=== PATIENT | male | born 1965 | race African-American/Black ===

== ENCOUNTER 2016-07-23 19:42 | Emergency (ER) | payer OTHER ==
[~2016-07-23] VITALS: Ht 167.6 cm; Wt 100.0 kg
[~2016-07-23 19:42] MED LIST: 1-ME1LIQ PO
[2016-07-23 19:45] VITALS: BP 164/94; PULSE 104; RESP 20; TEMP 98.2; O2SAT 96
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
[2016-11-01] MEDS ORDERED: AMLO10TA2 PO (12:05)
== END 2016-07-23 20:52 | disposition home or self-care (01) ==
LOC: NEPB 19:42
DX: S16.1XXA Strain of muscle, fascia and tendon at neck level, initial encounter (principal); I10 Essential (primary) hypertension; E78.00 Pure hypercholesterolemia, unspecified; Z72.0 Tobacco use; V43.52XA Car driver injured in collision with other type car in traffic accident, initial encounter; Y99.8 Other external cause status
CPT/HCPCS: 73564; 99283

== ENCOUNTER 2016-08-06 13:45 | Emergency (ER) | payer OTHER ==
[~2016-08-06] VITALS: Ht 167.6 cm; Wt 100.0 kg
[2016-08-06 13:48] VITALS: BP 160/89; PULSE 80; RESP 16; TEMP 98; O2SAT 96
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
[2016-08-06] MEDS ORDERED: NAPR500T PO (16:33)
[2016-11-01] MEDS ORDERED: AMLO10TA2 PO (12:05)
== END 2016-08-06 17:02 | disposition home or self-care (01) ==
LOC: NEPB 13:45
DX: S60.222D Contusion of left hand, subsequent encounter (principal); V43.52XD Car driver injured in collision with other type car in traffic accident, subsequent encounter; Y99.9 Unspecified external cause status; Y93.9 Activity, unspecified
CPT/HCPCS: 73130; 99283

== ENCOUNTER 2016-10-15 15:47 | Emergency (ER) | payer OTHER ==
[~2016-10-15] VITALS: Ht 167.6 cm; Wt 100.0 kg
[~2016-10-15 15:47] MED LIST changes: -1-ME1LIQ PO; +NAPR500T PO
[2016-10-15 15:48] VITALS: BP 143/77; PULSE 88; RESP 16; TEMP 97.7; O2SAT 98
[2016-10-15] MEDS ORDERED: blood pressure pill (17:20)
[2016-10-15] MEDS ORDERED: AMLO10TA2 PO (17:35)
[2016-10-15] MEDS ORDERED: NAPR500T PO (18:09)
[2016-11-01] MEDS ORDERED: AMLO10TA2 PO (12:05)
== END 2016-10-15 16:53 | disposition left against medical advice (07) ==
LOC: NETRI 15:47
DX: M79.672 Pain in left foot (principal); Z53.29 Procedure and treatment not carried out because of patient's decision for other reasons
CPT/HCPCS: 99281

== ENCOUNTER 2016-10-15 16:48 | Emergency (ER) | payer OTHER ==
[~2016-10-15] VITALS: Ht 167.6 cm; Wt 103.0 kg
[2016-10-15 16:59] VITALS: BP 157/100; PULSE 80; RESP 16; TEMP 98.8; O2SAT 96
--- NOTE | 2016-10-15 17:10 | PD ---
HPI Chief Complaint: Pain: Acute or Chronic Time Seen by Provider: 17:08 Travel History International Travel<30 days: No Contact w/Intl Traveler<30days: No Traveled to known affect area: No History of Present Illness HPI Patient comes in complaining of right fourth toe pain that he began this morning. Patient denies any known trauma. Patient denies anything like this in the past. Patient denies any numbness or tingling. Denies doing anything for this. Pain is worse with walking. Denies any radiation of the pain. Describes pain as achy like in nature. PFSH Past Medical History Cardiovascular Problems: Yes (HTN) High Cholesterol: Yes Diminished Hearing: No Hypertension: Yes Past Surgical History Other Surgery: Yes (REMOVAL OF CYST TO LEFT SIDE OF NECK ) Social History Alcohol Use: Yes (OCC) Tobacco Use: Yes Substance Use: No Allergies-Medications (Allergen,Severity, Reaction): Coded Allergies: No Known Allergies (Verified , 10/15/16) Reported Meds & Prescriptions Reported Meds & Active Scripts Active Naproxen 500 Mg Tab 500 Mg PO Q12HR PRN Reported Amlodipine (Amlodipine Besylate) 10 Mg Tab 10 Mg PO DAILY Review of Systems Except as stated in HPI: all other systems reviewed are Neg Physical Exam Narrative GENERAL: Well-developed, overly nourished, in no acute distress, and non-ill appearing. SKIN: Focused skin assessment warm and dry. HEAD: Atraumatic. Normocephalic. EYES: Pupils equal and round. EOMI. No scleral icterus. No injection or drainage. ENT: No nasal bleeding or discharge. Mucous membranes pink and moist. NECK: Trachea midline. Supple. No nuclear rigidity. CARDIOVASCULAR: Dorsal pulses 2+, intact, and equal bilaterally. Capillary refill less than 2 seconds. RESPIRATORY: No accessory muscle use. No respiratory distress. MUSCULOSKELETAL: No obvious deformities. No clubbing. No cyanosis. No edema. Full range of motion. Patient reports tenderness to palpation of the fourth metatarsal phalangeal joint of the right lower extremity. Is afebrile, nontender, nonfluctuant, and without crepitus. NEUROLOGICAL: Awake and alert. No obvious cranial nerve deficits. Motor grossly within normal limits. Normal speech. PSYCHIATRIC: Appropriate mood and affect; insight and judgment normal. Data Data Last Documented VS Vital Signs Date Time Temp Pulse Resp B/P Pulse Ox O2 Delivery O2 Flow Rate FiO2 10/15/16 18:15 18 10/15/16 16:59 98.8 80 157/100 96 Orders Toe (Min 2vws) (10/15/16 ) Ice/Cold Pack (10/15/16 17:08) Ketorolac Inj (Toradol Inj) (10/15/16 17:15) [facility] Medical Decision Making Medical Screen Exam Complete: Yes Emergency Medical Condition: Yes Differential Diagnosis Fracture, gout, pseudogout, arthritis, dislocation, other Narrative Course There is no clinical evidence for fracture. There is no clinical evidence to suspect bony injury by exam. Radiographic examination revealed no fracture seen at this time. No obvious ligamental injury or internal derangement is noted at this time. Appears neurovascularly intact distally, without evidence of neurovascular injury nor compartment syndrome. Tendon exam also was intact. The patient was discharged on pain medication and given warnings for vascular compromise. The patient is to follow up with podiatry. The patient agrees with plan. Patient in no obvious distress upon re-evaluation and reports improvement of his symptoms. All pertinent Radiology result(s) discussed with patient. Patient was asked if they wanted to speak to my attending, which the patient did not wish to do at this time. Any questions/concerns in reference to patient diagnosis/condition discussed and clarified prior to patient's discharge. Reinforced sheer importance of close follow up with patient's primary physician or primary care clinic and/or podiatry. Instructed patient to return to ED immediately, if symptoms return/worsen. Pt showed understanding of above instructions. Further instructions and recommendations were detailed in discharge paperwork. Pt ambulated without difficulty out of ED at discharge. Diagnosis Primary Impression: Toe pain, right Referrals: Zully Bales DPM Patient Instructions: General Instructions Additional Instructions: Follow-up with your primary care physician and or podiatry in 2-3 days for reevaluation. Take all medication as prescribed. Apply ice affected areas 20 minutes per hour as needed for pain. Return to the emergency department if symptoms get worse. Med/Other Pt SpecificInfo: Prescription(s) given Scripts Naproxen 500 Mg [id number] Mg PO Q12HR PRN (PAIN SCALE 1 TO 10) #14 TAB Ref 0 Prov:Arelis Harrington MD 10/15/16 Disposition: 01 DISCHARGE HOME Condition: Stable Jules Shea Oct 15, 2016 17:10
[2016-10-15] MEDS ORDERED: KETOROLAC TROMETHAMINE 60 MG/2 ML (IM) VIAL IM ONE (17:15)
[2016-10-15] MEDS ORDERED: blood pressure pill (17:20)
[2016-10-15] MEDS ORDERED: AMLO10TA2 PO (17:35)
--- NOTE | 2016-10-15 17:56 | RADHPO ---
EXAM DATE/TIME: 10/15/2016 17:23 [facility] COMPARISON: No previous studies available for comparison. INDICATIONS : Sudden onset of right 4th toe pain, no known injury MEDICAL HISTORY : Hypertension. SURGICAL HISTORY : None. ENCOUNTER: Initial ACUITY: 1 day PAIN SCORE: 9/10 LOCATION: Right 4th toe FINDINGS: Examination of the fourth digit of the right foot demonstrates no evidence of fracture or dislocation . No radiopaque foreign bodies are seen. The soft tissues are intact. CONCLUSION: Negative exam. David Lucero MD on October 15, 2016 at 17:54 Board Certified Radiologist. This report was verified electronically.
[2016-10-15] MEDS ORDERED: NAPR500T PO (18:09)
[2016-10-15 18:15] VITALS: RESP 18
[2016-11-01] MEDS ORDERED: AMLO10TA2 PO (12:05)
== END 2016-10-15 18:22 | disposition home or self-care (01) ==
LOC: PHED 16:48
DX: M79.674 Pain in right toe(s) (principal); I10 Essential (primary) hypertension; E78.00 Pure hypercholesterolemia, unspecified; Z72.0 Tobacco use
CPT/HCPCS: 73660; 96372; 99283; J1885

== ENCOUNTER 2016-10-18 12:30 | Emergency (ER) | payer OTHER ==
[~2016-10-18] VITALS: Ht 167.6 cm; Wt 103.4 kg
[~2016-10-18 12:30] MED LIST changes: +AMLO10TA2 PO
[2016-10-18 12:36] VITALS: BP 155/99; PULSE 93; RESP 16; TEMP 98.9; O2SAT 96
--- NOTE | 2016-10-18 13:20 | PD ---
HPI Chief Complaint: Edema Time Seen by Provider: 12:52 Travel History International Travel<30 days: No Contact w/Intl Traveler<30days: No Traveled to known affect area: No History of Present Illness HPI 51-year-old male complains of right groin pain, right foot pain and swelling. Patient was seen in the emergency room 3 days ago for right fourth toe pain. X- ray was negative acute bony injury. Patient was given prescription for Naprosyn. Patient states that she has increased in pain and swelling of the right foot now and started having pain or anterior aspect of the right groin also. Patient denies any fever chills. Patient denies any recent injury. Patient denies any chest pain or shortness of breath. Patient denies abdominal pain. Patient denies any dysuria or frequency. Patient states that the pain is aching pain and sharp pain localized to the dorsal aspect of the foot and the anterior aspect the right groin. Patient denies any pain radiation. On a scale of 1-10 the pain is a 9. PFSH Past Medical History Cardiovascular Problems: Yes (HTN) High Cholesterol: Yes Diminished Hearing: No Hypertension: Yes Influenza Vaccination: No Past Surgical History Other Surgery: Yes (REMOVAL OF CYST TO LEFT SIDE OF NECK ) Social History Alcohol Use: Yes (socially) Tobacco Use: No (occ) Substance Use: No Allergies-Medications (Allergen,Severity, Reaction): Coded Allergies: No Known Allergies (Verified , 10/18/16) Reported Meds & Prescriptions Reported Meds & Active Scripts Active Naproxen 500 Mg Tab 500 Mg PO Q12HR PRN Reported Amlodipine (Amlodipine Besylate) 10 Mg Tab 10 Mg PO DAILY Review of Systems General / Constitutional: No: Fever Eyes: No: Visual changes HENT: No: Headaches Cardiovascular: No: Chest Pain or Discomfort Respiratory: No: Shortness of Breath Gastrointestinal: No: Abdominal Pain Genitourinary: No: Dysuria Musculoskeletal: Positive: Pain Skin: No Rash Neurologic: No: Weakness Psychiatric: No: Depression Endocrine: No: Polydipsia Hematologic/Lymphatic: No: Easy Bruising Physical Exam Narrative GENERAL: Well-nourished, well-developed patient. SKIN: Focused skin assessment warm/dry. HEAD: Normocephalic. EYES: No scleral icterus. No injection or drainage. NECK: Supple, trachea midline. No JVD or lymphadenopathy. CARDIOVASCULAR: Regular rate and rhythm without murmurs, gallops, or rubs. RESPIRATORY: Breath sounds equal bilaterally. No accessory muscle use. GASTROINTESTINAL: Abdomen soft, non-tender, nondistended. MUSCULOSKELETAL: No cyanosis, or edema. BACK: Nontender without obvious deformity. No CVA tenderness. Patient has tenderness on palpation anterior aspect of right inguinal proximal right thigh area fibrous tissue prominence noted to the area. Patient has edema with mild tenderness and increasing heat and dorsal aspect the right foot. Data Data Last Documented VS Vital Signs Date Time Temp Pulse Resp B/P Pulse Ox O2 Delivery O2 Flow Rate FiO2 10/18/16 13:31 99 18 149/89 98 Room Air 10/18/16 12:36 98.9 Orders Complete Blood Count With Diff (10/18/16 13:06) Basic Metabolic Panel (Bmp) (10/18/16 13:06) Prothrombin Time / Inr (Pt) (10/18/16 13:06) Act Partial Throm Time (Ptt) (10/18/16 13:06) Westergren Sedimentation Rate (10/18/16 13:06) Iv Access Insert/Monitor (10/18/16 13:06) Us Leg Venous Doppler (10/18/16 13:06) Foot, Complete (Mbl4uvm) (10/18/16 13:06) Vancomycin Inj (Vancomycin Inj) (10/18/16 15:15) Labs Laboratory Tests Test 10/18/16 13:10 White Blood Count 13.4 TH/MM3 Red Blood Count 4.59 MIL/MM3 Hemoglobin 13.3 GM/DL Hematocrit 40.6 % Mean Corpuscular Volume 88.5 FL Mean Corpuscular Hemoglobin 29.0 PG Mean Corpuscular Hemoglobin 32.7 % Concent Red Cell Distribution Width 13.3 % Platelet Count 238 TH/MM3 Mean Platelet Volume 8.2 FL Neutrophils (%) (Auto) 84.5 % Lymphocytes (%) (Auto) 7.3 % Monocytes (%) (Auto) 7.8 % Eosinophils (%) (Auto) 0.2 % Basophils (%) (Auto) 0.2 % Neutrophils # (Auto) 11.4 TH/MM3 Lymphocytes # (Auto) 1.0 TH/MM3 Monocytes # (Auto) 1.0 TH/MM3 Eosinophils # (Auto) 0.0 TH/MM3 Basophils # (Auto) 0.0 TH/MM3 CBC Comment DIFF FINAL Differential Comment Erythrocyte Sedimentation Rate 36 mm/hr Prothrombin Time 10.7 SEC Prothromb Time International 1.0 RATIO Ratio Activated Partial 30.8 SEC Thromboplast Time Sodium Level 141 MEQ/L Potassium Level 3.9 MEQ/L Chloride Level 105 MEQ/L Carbon Dioxide Level 28.6 MEQ/L Anion Gap 7 MEQ/L Blood Urea Nitrogen 11 MG/DL Creatinine 1.30 MG/DL Estimat Glomerular Filtration 71 ML/MIN Rate Random Glucose 125 MG/DL Calcium Level 9.0 MG/DL [facility] Medical Decision Making Medical Screen Exam Complete: Yes Emergency Medical Condition: Yes Interpretation(s) 1503 p.m. Last Impressions Lower Extremity Ultrasound 10/18/16 1306 Signed Impressions: Service Date/Time: Tuesday, October 18, 2016 14:13 - CONCLUSION: Normal examination. Remi Gil MD Foot X-Ray 10/18/16 1306 Signed Impressions: Service Date/Time: Tuesday, October 18, 2016 13:17 - CONCLUSION: 1. Soft tissue swelling otherwise unremarkable. Fran Peters MD 1504 p.m. CBC with WBC 8.0. 79 neutrophil. Potassium 3.4. Creatinine 1.5. UA is negative. Differential Diagnosis Differential diagnosis including superficial phlebitis, lymphadenitis, cellulitis, abscess, sprain, fracture, dislocation, gouty arthritis. Narrative Course 51-year-old male with pain swelling of the right foot and pain on the right groin. Vancomycin 1 g IV given. Diagnosis Primary Impression: Cellulitis of right foot Additional Impression: Lymphadenitis Patient Instructions: General Instructions Additional Instructions: Bactrim and clindamycin as directed. Return in 2 days for recheck. Return sooner if worsening of condition. Med/Other Pt SpecificInfo: Prescription(s) given Scripts Clindamycin 150 Mg Cap2 Tab PO Q6H #80 CAP Prov:Giles Ellis MD 10/18/16 Sulfamethoxazole-Trimethoprim (Bactrim DS)800-160 Mg Tab1 Tab PO BID #20 TAB Prov:Giles Ellis MD 10/18/16 Disposition: 01 DISCHARGE HOME Condition: Stable Giles Ellis MD Oct 18, 2016 13:20
[2016-10-18 13:31] VITALS: BP 149/89; PULSE 99; RESP 18; O2SAT 98
[2016-10-18 13:36] LABS: AUTOMATED NEUTROPHIL # 11.4 TH/MM3 (1.8-7.7); BASOPHIL % 0.2 % (0.0-2.0); EOSINOPHIL % 0.2 % (0.0-4.0); HEMATOCRIT 40.6 % (39.0-51.0); LYMPH % 7.3 % (9.0-44.0); MEAN CELL VOLUME 88.5 FL (80.0-100.0); MEAN CORPUSCULAR HGB CONC 32.7 % (32.0-36.0); MONO % 7.8 % (0.0-8.0); NEUT % 84.5 % (16.0-70.0); PLATELET COUNT 238 TH/MM3 (150-450); RED BLOOD COUNT 4.59 MIL/MM3 (4.50-5.90); RED CELL DISTRIBUTION WIDTH 13.3 % (11.6-17.2); WHITE BLOOD COUNT 13.4 TH/MM3 (4.0-11.0)
[2016-10-18 13:47] LABS: HEMO FLAGS DIFF FINAL
[2016-10-18 13:55] LABS: POTASSIUM 3.9 MEQ/L (3.5-5.1)
[2016-10-18 13:57] LABS: BICARBONATE 28.6 MEQ/L (21.0-32.0)
[2016-10-18 14:09] LABS: APTT (PATIENT) 30.8 SEC (24.3-30.1); PROTHROMBIN TIME - PATIENT 10.7 SEC (9.8-11.6)
--- NOTE | 2016-10-18 14:32 | RADHPO ---
EXAM DATE/TIME: 10/18/2016 13:17 [facility] COMPARISON: No previous studies available for comparison. INDICATIONS : Right foot swelling with no known injury. MEDICAL HISTORY : Hypertension. Hypercholesterolemia. Osteoarthritis. SURGICAL HISTORY : Throat surgery. Cyst removed from neck. Left knee surgery. ENCOUNTER: Initial ACUITY: 4 - 6 days PAIN SCORE: 9/10 LOCATION: Right foot FINDINGS: Soft tissue swelling is present over the dorsum of the foot. There is no evidence of acute fracture. Bony mineralization is normal. Joint spaces are maintained. CONCLUSION: 1. Soft tissue swelling otherwise unremarkable. Fran Peters MD on October 18, 2016 at 14:20 Board Certified Radiologist. This report was verified electronically.
--- NOTE | 2016-10-18 14:44 | RADHPO ---
EXAM DATE/TIME: 10/18/2016 14:13 [place] COMPARISON: No previous studies available for comparison. INDICATIONS : Right leg pain and swelling. MEDICAL HISTORY : Hypercholesterolemia. Hypertension. Osteoarthritis. SURGICAL HISTORY : Left knee surgery. Throat surgery. Cyst removal from left side of neck. ENCOUNTER: Initial ACUITY: 2 weeks PAIN SCORE: 4/10 LOCATION: Right leg. TECHNIQUE: Venous ultrasound of the leg was performed from the inguinal ligament to the proximal calf. Real-zuri e, color Doppler and spectral tracing, compression and augmentation techniques were used. FINDINGS: There is normal compressibility of the deep venous system from the inguinal region to the proximal ca lf. No echogenic clot is seen in the lumen of the common femoral, femoral, popliteal, and posterior tibial veins. There is a normal response of the venous system to proximal and distal augmentation an d respiration. CONCLUSION: Normal examination. Remi Gil MD on October 18, 2016 at 14:41 Board Certified Radiologist. This report was verified electronically.
[2016-10-18] MEDS ORDERED: VANCOMYCIN INJ 1,000 MG in SODIUM CHLOR 0.9% 250 ML INJ 250 ML IV ONE (15:15)
[2016-10-18] MEDS ORDERED: BACT800T5 PO (15:35)
[2016-10-18] MEDS ORDERED: CLIN1CAP5 PO (15:35)
[2016-10-18 15:47] VITALS: BP 139/89; PULSE 77; RESP 18; O2SAT 99
[2016-10-18 16:37] VITALS: BP 152/93; PULSE 75; RESP 18; O2SAT 97
[2016-11-01] MEDS ORDERED: AMLO10TA2 PO (12:05)
== END 2016-10-18 17:23 | disposition home or self-care (01) ==
LOC: PHED 12:30
DX: L03.115 Cellulitis of right lower limb (principal); I88.9 Nonspecific lymphadenitis, unspecified; R60.9 Edema, unspecified; I10 Essential (primary) hypertension; E78.00 Pure hypercholesterolemia, unspecified; M79.89 Other specified soft tissue disorders; Z79.899 Other long term (current) drug therapy
CPT/HCPCS: 73630; 80048; 85025; 85610; 85652; 85730; 93971; 96365; 99284; J3370; J7050

== ENCOUNTER 2016-10-20 10:44 | Inpatient (IN) | payer OTHER ==
[~2016-10-20] VITALS: Ht 180.3 cm; Wt 100.7 kg
[~2016-10-20 10:44] MED LIST changes: +BACT800T5 PO; +CLIN1CAP5 PO
[2016-10-20 10:47] VITALS: BP 147/93; PULSE 91; RESP 16; TEMP 98.2; O2SAT 96
--- NOTE | 2016-10-20 11:21 | PD ---
HPI Chief Complaint: Edema Time Seen by Provider: 11:33 Travel History International Travel<30 days: No Contact w/Intl Traveler<30days: No Traveled to known affect area: No History of Present Illness HPI 51-year-old male with history of hypertension presents the ED for recheck of right foot cellulitis. Patient endorses increased edema, pain and redness in the area. Endorses chills, has not measured a fever at home. At last visit 10/18 he had lymphadenopathy in the right groin which he states has resolved. He endorses compliance with Bactrim and clindamycin prescribed a previous visit. States that he has been elevating the foot daily. PFSH Past Medical History Hx Anticoagulant Therapy: No Cardiovascular Problems: Yes (HTN) High Cholesterol: Yes Diabetes: No Diminished Hearing: No Hypertension: Yes Past Surgical History Surgical History: No Previous Surgery Other Surgery: Yes (REMOVAL OF CYST TO LEFT SIDE OF NECK ) Social History Alcohol Use: Yes (socially) Tobacco Use: No (occ) Substance Use: No Allergies-Medications (Allergen,Severity, Reaction): Coded Allergies: No Known Allergies (Verified , 10/20/16) Reported Meds & Prescriptions Reported Meds & Active Scripts Active Clindamycin (Clindamycin HCl) 150 Mg Cap 2 Tab PO Q6H Bactrim DS (Sulfamethoxazole-Trimethoprim) 800-160 Mg Tab 1 Tab PO BID Naproxen 500 Mg Tab 500 Mg PO Q12HR PRN Reported Amlodipine (Amlodipine Besylate) 10 Mg Tab 10 Mg PO DAILY Review of Systems Except as stated in HPI: all other systems reviewed are Neg Physical Exam Narrative GENERAL: Well-nourished, well-developed nontoxic-appearing black male in no acute distress. SKIN: Focused skin assessment warm/dry. HEAD: Normocephalic. EYES: No scleral icterus. No injection or drainage. NECK: Supple, trachea midline. No JVD or lymphadenopathy. CARDIOVASCULAR: Regular rate and rhythm without murmurs, gallops, or rubs. RESPIRATORY: Breath sounds equal bilaterally. No accessory muscle use. GASTROINTESTINAL: Abdomen soft, non-tender, nondistended. MUSCULOSKELETAL: No cyanosis. FOCUSED RIGHT LOWER EXTREMITY EXAM: 2+ DP pulse. The distal third of the dorsal aspect of the right foot is mildly erythematous and warm. There is tender 2+ edema to the mid [place]. No lymphadenopathy noted in the right groin. BACK: Nontender without obvious deformity. No CVA tenderness. Data Data Last Documented VS Vital Signs Date Time Temp Pulse Resp B/P Pulse Ox O2 Delivery O2 Flow Rate FiO2 10/20/16 13:01 16 10/20/16 10:47 98.2 91 147/93 96 Orders Complete Blood Count With Diff (10/20/16 11:31) Westergren Sedimentation Rate (10/20/16 11:31) ^ Insert Iv (10/20/16 11:31) Ketorolac Inj (Toradol Inj) (10/20/16 11:45) Clindamycin Inj (Cleocin Inj) (10/20/16 13:15) Admit Order (Ed Use Only) (10/20/16 13:25) Labs Laboratory Tests Test 10/20/16 11:40 White Blood Count 8.0 TH/MM3 Red Blood Count 4.78 MIL/MM3 Hemoglobin 14.2 GM/DL Hematocrit 42.1 % Mean Corpuscular Volume 88.1 FL Mean Corpuscular Hemoglobin 29.7 PG Mean Corpuscular Hemoglobin 33.8 % Concent Red Cell Distribution Width 13.0 % Platelet Count 258 TH/MM3 Mean Platelet Volume 8.0 FL Neutrophils (%) (Auto) 81.6 % Lymphocytes (%) (Auto) 10.6 % Monocytes (%) (Auto) 7.0 % Eosinophils (%) (Auto) 0.6 % Basophils (%) (Auto) 0.2 % Neutrophils # (Auto) 6.5 TH/MM3 Lymphocytes # (Auto) 0.9 TH/MM3 Monocytes # (Auto) 0.6 TH/MM3 Eosinophils # (Auto) 0.0 TH/MM3 Basophils # (Auto) 0.0 TH/MM3 CBC Comment AUTO DIFF Differential Comment AUTO DIFF CONFIRMED Erythrocyte Sedimentation Rate 19 mm/hr Sodium Level 140 MEQ/L Potassium Level 4.1 MEQ/L Chloride Level 107 MEQ/L Carbon Dioxide Level 23.6 MEQ/L Anion Gap 9 MEQ/L Blood Urea Nitrogen 15 MG/DL Creatinine 1.40 MG/DL Estimat Glomerular Filtration 65 ML/MIN Rate Random Glucose 118 MG/DL Calcium Level 9.4 MG/DL Total Bilirubin 0.3 MG/DL Aspartate Amino Transf 20 U/L (AST/SGOT) Alanine Aminotransferase 32 U/L (ALT/SGPT) Alkaline Phosphatase 102 U/L Total Protein 8.0 GM/DL Albumin 3.4 GM/DL MDM Medical Decision Making Medical Screen Exam Complete: Yes Emergency Medical Condition: Yes Differential Diagnosis Wound recheck versus cellulitis versus sepsis versus other Narrative Course 51-year-old male with history of hypertension presents the ED for recheck of right foot cellulitis. Patient endorses increased edema, pain and redness in the area. States that he is unable to walk on the foot secondary to pain. Endorses chills, has not measured a fever at home. At last visit he had lymphadenopathy in the right groin which he states has resolved. He endorses compliance with Keflex and Clindamycin. States that he has been elevating the foot daily. Denies history of diabetes. Vitals reviewed. Patient is afebrile on presentation. Physical exam reveals a nontoxic-appearing black male in no acute distress. The distal third of the dorsal aspect of the right foot is mildly erythematous and warm. There is tender 2+ edema to the mid [place]. No lymphadenopathy noted in the right groin. He is administered 30 mg IV Toradol. Review of the record reveals the patient had a previous white count of 13.4, previous ESR of 36. HE was administered IV Vancomycin. He also had an x-ray and ultrasound of the extremity which were both negative. WBC 8.0, ESR 19 today. I discussed the case with Dr. Pope who examined the patient and recommends IV clindamycin and observational admission. I spoke with Dr. Andersen who agrees to accept the patient to the medical service. Please see medicine notes for disposition. Diagnosis Primary Impression: Cellulitis of right foot Additional Impression: Leg edema, right Disposition: 01 DISCHARGE HOME Condition: Stable Cyndi Faith Oct 20, 2016 11:21
[2016-10-20] MEDS ORDERED: KETOROLAC TROMETHAMINE 30 MG/ML (IVP) VIAL IV PUSH ONE (11:45)
[2016-10-20 11:54] LABS: AUTOMATED NEUTROPHIL # 6.5 TH/MM3 (1.8-7.7); BASOPHIL % 0.2 % (0.0-2.0); EOSINOPHIL % 0.6 % (0.0-4.0); HEMATOCRIT 42.1 % (39.0-51.0); LYMPH % 10.6 % (9.0-44.0); LYMPHOCYTE # 0.9 TH/MM3 (1.0-4.8); MEAN CELL VOLUME 88.1 FL (80.0-100.0); MEAN CORPUSCULAR HEMOGLOBIN 29.7 PG (27.0-34.0); MEAN CORPUSCULAR HGB CONC 33.8 % (32.0-36.0); NEUT % 81.6 % (16.0-70.0); PLATELET COUNT 258 TH/MM3 (150-450); RED BLOOD COUNT 4.78 MIL/MM3 (4.50-5.90)
[2016-10-20 11:59] LABS: HEMO FLAGS AUTO DIFF
[2016-10-20 12:33] LABS: SCAN/DIFF AUTO DIFF CONFIRMED
[2016-10-20] MEDS ORDERED: CLINDAMYCIN INJ 900 MG in SODIUM CHLORIDE 0.9% INJ 100 ML IV ONE (13:15)
[2016-10-20] MEDS ORDERED: ONDANSETRON HCL 4 MG/2 ML VIAL IVP PRN (13:30)
[2016-10-20] MEDS ORDERED: MAGNESIUM HYDROXIDE SUSP 30 ML CUP PO PRN (13:30)
[2016-10-20] MEDS ORDERED: SENNOSIDES 8.6 MG TAB PO PRN (13:30)
[2016-10-20] MEDS ORDERED: SODIUM CHLORIDE 0.9% FLUSH 10 ML FLUSH IV FLUSH PRN (13:30)
[2016-10-20] MEDS ORDERED: BISACODYL 10 MG SUPP RECTAL PRN (13:30)
[2016-10-20] MEDS ORDERED: NALOXONE HCL 0.4 MG/ML AMP IV PRN ×2 (13:30→18:30)
[2016-10-20 13:38] LABS: CHLORIDE 107 MEQ/L (98-107); POTASSIUM 4.1 MEQ/L (3.5-5.1); SODIUM (NA) 140 MEQ/L (136-145)
[2016-10-20 13:42] LABS: ANION GAP 9 MEQ/L (5-15); BICARBONATE 23.6 MEQ/L (21.0-32.0); BLOOD UREA NITROGEN 15 MG/DL (7-18)
[2016-10-20 13:45] LABS: ALT (GPT) 32 U/L (12-78); AST (GOT) 20 U/L (15-37); GLOMERULAR FILTRATION RATE 65 ML/MIN (>89)
[2016-10-20 13:47] LABS: TOTAL BILIRUBIN ADULT 0.3 MG/DL (0.2-1.0)
[2016-10-20 13:48] LABS: ALKALINE PHOSPHATASE 102 U/L (45-117)
[2016-10-20] MEDS: SODIUM CHLOR 0.9% 1000 ML INJ 1,000 ML IV SCH (13:55)
[2016-10-20] MEDS: PIPERACIL-TAZO 3.375 GM PREMIX 50 ML IV SCH ×2 (13:56→21:41)
[2016-10-20] MEDS ORDERED: Vancomycin Consult Pharmacy 1 EA OTHER SCH (14:00)
[2016-10-20 14:35] VITALS: BP 158/89; PULSE 82; RESP 16; TEMP 98; O2SAT 97
[2016-10-20] MEDS ORDERED: VANCOMYCIN INJ 1,000 MG in SODIUM CHLOR 0.9% 250 ML INJ 250 ML IV SCH (16:00)
[2016-10-20] MEDS: VANCOMYCIN INJ 1,800 MG in SODIUM CHLORID 0.9% 500 ML INJ 500 ML IV SCH (16:36)
--- NOTE | 2016-10-20 17:47 | HHI.HP ---
[facility] No Primary Care Physician Admission Diagnosis cellulitis and edema of the right leg Diagnoses: (1) Cellulitis of right foot Diagnosis: Principal (2) Failure of outpatient treatment Diagnosis: Principal (3) Hypertension Diagnosis: Principal Chief Complaint: swelling, redness R foot Travel History International Travel<30 Days: No Contact w/Intl Traveler <30 Da: No Traveled to Known Affected Are: No History of Present Illness 51-year-old male with history of hypertension presents with complaint of swelling and redness to his right foot. He states the swelling started on 10/14/16 and the redness started on 10/16/16. He states the foot is warm. Pain is throbbing. Nothing makes it better or worse. He states he had a slight headache at home but denies any fevers or chills. Patient presented to the ED on 10/15/16 with right fourth toe pain and was prescribed naproxen, states that toe is swollen. He came back to ED on 10/18/16 and was treated for cellulitis and prescribed Bactrim and Clindamycin which he has been taking as prescribed since. Denies any chest pain, shortness of breath, abdominal pain, nausea, vomiting or diarrhea. Denies history of gout. Denies stepping on anything. Review of Systems Constitutional: DENIES: Fever, Chills Eyes: DENIES: Blurred vision Ears, nose, mouth, throat: DENIES: Throat pain, Ear Pain Respiratory: DENIES: Cough, Shortness of breath Cardiovascular: DENIES: Chest pain Gastrointestinal: DENIES: Abdominal pain, Constipation, Diarrhea, Nausea, Vomiting Genitourinary: DENIES: Dysuria Neurologic: COMPLAINS OF: Headache, DENIES: Paresthesias Integumentary: + R foot redness Musculoskeletal: + R foot pain and swelling Past Family Social History Past Medical History HTN Past Surgical History Cyst removal left side of neck Reported Medications Active Clindamycin (Clindamycin HCl) 150 Mg Cap 2 Tab PO Q6H Bactrim DS (Sulfamethoxazole-Trimethoprim) 800-160 Mg Tab 1 Tab PO BID Naproxen 500 Mg Tab 500 Mg PO Q12HR PRN Reported Amlodipine (Amlodipine Besylate) 10 Mg Tab 10 Mg PO DAILY Allergies: Coded Allergies: No Known Allergies (Verified , 10/20/16) Family History Mother: Hypertension Father's history unknown. Social History Occasionally drinks alcohol. Smokes a Black and Mild, one per week. Denies any history of illicit drug use including IVDA. Physical Exam Vital Signs Vital Signs Date Time Temp Pulse Resp B/P Pulse Ox O2 Delivery O2 Flow Rate FiO2 10/20/16 14:35 98.0 82 16 158/89 97 Room Air 10/20/16 13:01 16 10/20/16 11:40 16 10/20/16 10:47 98.2 91 16 147/93 96 Physical Exam GENERAL: This is a well-nourished, well-developed patient, in no apparent distress. SKIN: Erythema over the dorsal right foot. No wounds to the dorsal or plantar aspect of the right foot. Dry skin to plantar R foot. HEAD: Atraumatic. Normocephalic. EYES: No scleral icterus. No injection or drainage. NECK: Trachea midline. CARDIOVASCULAR: Regular rate and rhythm without murmurs, gallops, or rubs. RESPIRATORY: Clear to auscultation, but diminished. No wheezes, rales, or rhonchi. GASTROINTESTINAL: Normoactive bowel sounds. Abdomen soft, non-tender, nondistended. MUSCULOSKELETAL: Right foot and 4th toe are edematous. Mildly tender over the dorsal right foot. Mildly tender over the right medial and lateral malleolus, but patient has good active ROM of ankle joint. 2+ DP pulses bilaterally. NEUROLOGICAL: Awake and alert. Motor grossly within normal limits. Five out of 5 muscle strength in bilateral quadriceps. Normal speech. PSYCHIATRIC: Normal mood and affect. Insight and judgement normal. Laboratory Laboratory Tests Test 10/20/16 11:40 White Blood Count 8.0 Red Blood Count 4.78 Hemoglobin 14.2 Hematocrit 42.1 Mean Corpuscular Volume 88.1 Mean Corpuscular Hemoglobin 29.7 Mean Corpuscular Hemoglobin 33.8 Concent Red Cell Distribution Width 13.0 Platelet Count 258 Mean Platelet Volume 8.0 Neutrophils (%) (Auto) 81.6 Lymphocytes (%) (Auto) 10.6 Monocytes (%) (Auto) 7.0 Eosinophils (%) (Auto) 0.6 Basophils (%) (Auto) 0.2 Neutrophils # (Auto) 6.5 Lymphocytes # (Auto) 0.9 Monocytes # (Auto) 0.6 Eosinophils # (Auto) 0.0 Basophils # (Auto) 0.0 CBC Comment AUTO DIFF Differential Comment AUTO DIFF CONFIRMED Erythrocyte Sedimentation Rate 19 Sodium Level 140 Potassium Level 4.1 Chloride Level 107 Carbon Dioxide Level 23.6 Anion Gap 9 Blood Urea Nitrogen 15 Creatinine 1.40 Estimat Glomerular Filtration 65 Rate Random Glucose 118 Calcium Level 9.4 Total Bilirubin 0.3 Aspartate Amino Transf 20 (AST/SGOT) Alanine Aminotransferase 32 (ALT/SGPT) Alkaline Phosphatase 102 Total Protein 8.0 Albumin 3.4 Result Diagram: 10/20/16 1140 10/20/16 1140 Imaging 10/18 Right foot x-rays personally interpreted with no evidence of bony injury. 10/18 Doppler ultrasound negative for DVT. Assessment and Plan Assessment and Plan 51-year-old Israeli male with: Right foot cellulitis: Symptoms started 10/14. Failed outpatient antibiotics. No evidence of gout or septic joint. WBC normal. Neutrophils elevated at 81.6%. ESR improved from 10/18, 36-->19. -Zosyn, Vanc -Elevation -Tylenol, [place] prn pain -ID consultation -Monitor CBC HTN: Elevated on arrival but now improved without intervention. -Continue home amlodipine CKD: Upon review of prior labs, appears to have stage 2 CKD. Cr is 1.40 today which is likely patient's baseline. -IVF for now -Monitor BMP DVT prevention: SCDs. Discussed Condition With The exam, history, and the medical decision-making described in the above note were completed with the assistance of the mid-level provider. I reviewed and agree with the findings presented. I attest that I had a [id number] encounter with the patient on the same day, and personally performed and documented my assessment and findings in the medical record. Physician Certification 2 Midnight Certification Type: Admission for Inpatient Services Order for Inpatient Services The services are ordered in accordance with Medicare regulations or non- Medicare payer requirements, as applicable. In the case of services not specified as inpatient-only, they are appropriately provided as inpatient services in accordance with the 2-midnight benchmark. Estimated LOS (days): 2 days is the estimated time the patient will need to remain in the hospital, assuming treatment plan goals are met and no additional complications. Post-Hospital Plan: Home Leeanna Rivera Oct 20, 2016 17:47 Timothy Andersen MD Oct 20, 2016 23:14
[2016-10-20 18:13] VITALS: BP 134/84; PULSE 74; RESP 14; TEMP 97.6; O2SAT 97
[2016-10-20] MEDS ORDERED: ACETAMINOPHEN/HYDROcodone 325 MG/5 MG TAB PO PRN (18:30)
[2016-10-20] MEDS ORDERED: ACETAMINOPHEN 325 MG TAB PO PRN (18:30)
[2016-10-20 20:00] VITALS: BP 153/86; PULSE 76; RESP 20; TEMP 97.3; O2SAT 100
[2016-10-20] MEDS: DOCUSATE SODIUM 100 MG CAP PO SCH (21:00)
[2016-10-20] MEDS: SODIUM CHLORIDE 0.9% FLUSH 10 ML FLUSH IV FLUSH SCH (21:00)
[2016-10-20] MEDS: ACETAMINOPHEN/HYDROcodone 325 MG/10 MG TAB PO PRN (21:40)
[2016-10-21] VITALS: BP 145/92; PULSE 72; RESP 18; TEMP 97.1; O2SAT 96
[2016-10-21] MEDS: PIPERACIL-TAZO 3.375 GM PREMIX 50 ML IV SCH ×3 (02:13→13:07)
[2016-10-21] MEDS: SODIUM CHLOR 0.9% 1000 ML INJ 1,000 ML IV SCH ×3 (02:15→21:02)
[2016-10-21] MEDS: ACETAMINOPHEN/HYDROcodone 325 MG/10 MG TAB PO PRN ×3 (03:59→21:02)
[2016-10-21 06:06] LABS: AUTOMATED NEUTROPHIL # 5.2 TH/MM3 (1.8-7.7); BASOPHIL % 0.2 % (0.0-2.0); EOSINOPHIL # 0.1 TH/MM3 (0-0.4); HEMATOCRIT 38.6 % (39.0-51.0); HEMO FLAGS DIFF FINAL; LYMPH % 19.3 % (9.0-44.0); LYMPHOCYTE # 1.5 TH/MM3 (1.0-4.8); MEAN CELL VOLUME 87.4 FL (80.0-100.0); MEAN CORPUSCULAR HGB CONC 33.2 % (32.0-36.0); MONO % 12.1 % (0.0-8.0); NEUT % 67.4 % (16.0-70.0); PLATELET COUNT 245 TH/MM3 (150-450); RED BLOOD COUNT 4.41 MIL/MM3 (4.50-5.90); RED CELL DISTRIBUTION WIDTH 12.6 % (11.6-17.2); WHITE BLOOD COUNT 7.7 TH/MM3 (4.0-11.0)
[2016-10-21 06:12] LABS: CHLORIDE 108 MEQ/L (98-107); POTASSIUM 4.2 MEQ/L (3.5-5.1); SODIUM (NA) 141 MEQ/L (136-145)
[2016-10-21 06:17] LABS: ANION GAP 7 MEQ/L (5-15); BICARBONATE 26.3 MEQ/L (21.0-32.0); BLOOD UREA NITROGEN 16 MG/DL (7-18)
[2016-10-21 06:28] LABS: ALKALINE PHOSPHATASE 84 U/L (45-117); ALT (GPT) 32 U/L (12-78); AST (GOT) 16 U/L (15-37); GLOMERULAR FILTRATION RATE 60 ML/MIN (>89); TOTAL BILIRUBIN ADULT 0.4 MG/DL (0.2-1.0)
[2016-10-21 08:00] VITALS: BP 142/87; PULSE 66; RESP 20; TEMP 96.1; O2SAT 100
[2016-10-21] MEDS: SODIUM CHLORIDE 0.9% FLUSH 10 ML FLUSH IV FLUSH SCH ×2 (08:46→21:02)
[2016-10-21] MEDS: DOCUSATE SODIUM 100 MG CAP PO SCH ×2 (08:46→20:58)
[2016-10-21 12:00] VITALS: BP 146/91; PULSE 75; RESP 20; TEMP 97; O2SAT 98
--- NOTE | 2016-10-21 14:52 | PD.CONS ---
History of Present Illness Service Infectious disease Consult Requested By Dr Andersen Reason for Consult Cellulitis rt foot Primary Care Physician No Primary Care Physician Diagnoses: (1) Cellulitis of right foot (2) Failure of outpatient treatment (3) Hypertension History of Present Illness Patient with known HTN , denies diabetes says he scratched the sole of his rt foot with a back telephone cleaner and on 10/14 noted swelling that got progressively worse with pain and redness - came to the ER on 10/18 had a US - which was negative for DVT and he was given oral antibiotics but he continued to have swelling and pain and so came to the hospital and was admitted. Some sweats- no fever or chills. Review of Systems Constitutional: COMPLAINS OF: Diaphoretic episodes, DENIES: Fever Endocrine: DENIES: Polydipsia, Polyuria Eyes: DENIES: Diplopia, Eye inflammation Ears, nose, mouth, throat: DENIES: Hearing loss, Vertigo Respiratory: DENIES: Snoring, Wheezing, Shortness of breath Cardiovascular: COMPLAINS OF: Lower Extremity Edema, DENIES: Palpitations, Dyspnea on Exertion Gastrointestinal: DENIES: Abdominal pain, Black stools, Bloody stools, Constipation Genitourinary: DENIES: Urinary frequency Musculoskeletal: DENIES: Joint pain, Back pain Integumentary: COMPLAINS OF: Abnormal pigmentation Immunologic/allergic: DENIES: Eczema, Urticaria Neurologic: DENIES: Localized weakness, Speech Problems Psychiatric: DENIES: Anxiety, Confusion, Mood changes Past Family Social History Allergies: Coded Allergies: No Known Allergies (Verified , 10/20/16) Past Medical History Past Medical History HTN Past Surgical History Cyst removal left side of neck Reported Medications Active IV Vancomycin IV Zosyn Reported Amlodipine (Amlodipine Besylate) 10 Mg Tab 10 Mg PO DAILY Allergies: Coded Allergies: No Known Allergies (Verified , 10/20/16) Family History Mother: Hypertension Father's history unknown. Social History Occasionally drinks alcohol. Smokes a Black and Mild, one per week. Denies any history of illicit drug use including IVDA. Physical Exam Vital Signs Vital Signs Date Time Temp Pulse Resp B/P Pulse Ox O2 Delivery O2 Flow Rate FiO2 10/21/16 14:06 20 10/21/16 12:00 97.0 75 20 146/91 98 10/21/16 08:00 96.1 66 20 142/87 100 10/21/16 00:00 97.1 72 18 145/92 96 10/20/16 20:00 97.3 76 20 153/86 100 10/20/16 18:13 97.6 74 14 134/84 97 Physical Exam GENERAL: This is a obese patient, in no apparent distress. SKIN: Rt foot and leg warm , inflamed. HEAD: Atraumatic. Normocephalic. No temporal or scalp tenderness. EYES: Pupils equal round and reactive. Extraocular motions intact. No scleral icterus. No injection or drainage. ENT: Nose without bleeding, purulent drainage or septal hematoma. Throat without erythema, tonsillar hypertrophy or exudate. Uvula midline. Airway patent. NECK: Trachea midline. No JVD or lymphadenopathy. Supple, nontender, no meningeal signs. CARDIOVASCULAR: Regular rate and rhythm without murmurs, gallops, or rubs. RESPIRATORY: Clear to auscultation. Breath sounds equal bilaterally. No wheezes , rales, or rhonchi. GASTROINTESTINAL: Abdomen soft, non-tender, nondistended. No hepato-splenomegaly , or palpable masses. No guarding. MUSCULOSKELETAL: Extremities without clubbing, cyanosis No joint tenderness, effusion, or edema noted. No calf tenderness. Negative Homans sign bilaterally. Rt foot and leg inflamed, warm NEUROLOGICAL: Awake and alert. Cranial nerves II through XII intact. Motor and sensory grossly within normal limits. Five out of 5 muscle strength in all muscle groups. Normal speech. Laboratory Laboratory Tests Test 10/21/16 05:29 White Blood Count 7.7 Red Blood Count 4.41 Hemoglobin 12.8 Hematocrit 38.6 Mean Corpuscular Volume 87.4 Mean Corpuscular Hemoglobin 29.0 Mean Corpuscular Hemoglobin 33.2 Concent Red Cell Distribution Width 12.6 Platelet Count 245 Mean Platelet Volume 8.1 Neutrophils (%) (Auto) 67.4 Lymphocytes (%) (Auto) 19.3 Monocytes (%) (Auto) 12.1 Eosinophils (%) (Auto) 1.0 Basophils (%) (Auto) 0.2 Neutrophils # (Auto) 5.2 Lymphocytes # (Auto) 1.5 Monocytes # (Auto) 0.9 Eosinophils # (Auto) 0.1 Basophils # (Auto) 0.0 CBC Comment DIFF FINAL Differential Comment Sodium Level 141 Potassium Level 4.2 Chloride Level 108 Carbon Dioxide Level 26.3 Anion Gap 7 Blood Urea Nitrogen 16 Creatinine 1.50 Estimat Glomerular Filtration 60 Rate Random Glucose 101 Calcium Level 8.6 Total Bilirubin 0.4 Aspartate Amino Transf 16 (AST/SGOT) Alanine Aminotransferase 32 (ALT/SGPT) Alkaline Phosphatase 84 Total Protein 6.9 Albumin 2.8 Result Diagram: 10/21/1629 10/21/16528 Assessment and Plan Problem List: (1) Cellulitis of right foot Status: Acute Plan: Follow clinically Continue IV Vancomycin - pharmacy to dose Stop IV Zosyn Cefazolin 1 g IV q 8hrs (2) Hypertension Status: Acute (3) Failure of outpatient treatment Status: Acute Problem Qualifiers (1) Hypertension: Qualified Code: I10 - Essential hypertension Sloane Ramsey MD Oct 21, 2016 14:52
[2016-10-21 16:00] VITALS: BP 150/86; PULSE 69; RESP 20; TEMP 95.5; O2SAT 99
[2016-10-21] MEDS: VANCOMYCIN INJ 1,800 MG in SODIUM CHLORID 0.9% 500 ML INJ 500 ML IV SCH (16:10)
[2016-10-21 20:00] VITALS: BP 147/92; PULSE 71; RESP 20; TEMP 98.3; O2SAT 99
--- NOTE | 2016-10-21 22:43 | HHI.PR ---
Subjective Remarks Patient seen this afternoon around 1 PM. Patient states that right foot pain has not improved at all. He denies any chest pain or shortness of breath. Objective Vital Signs Date Time Temp Pulse Resp B/P Pulse Ox O2 Delivery O2 Flow Rate FiO2 10/21/16 20:00 98.3 71 20 147/92 99 10/21/16 16:00 95.5 69 20 150/86 99 10/21/16 14:06 20 10/21/16 12:00 97.0 75 20 146/91 98 10/21/16 08:00 96.1 66 20 142/87 100 10/21/16 00:00 97.1 72 18 145/92 96 I/O 10/20/16 10/20/16 10/20/16 10/21/16 10/21/16 10/21/16 07:00 15:00 23:00 07:00 15:00 23:00 Intake Total 156 ml 240 ml 2012 ml 1700 ml Output Total 400 ml 750 ml Balance 156 ml -160 ml 1262 ml 1700 ml Intake Oral 240 ml 240 ml 1700 ml IV Total 156 ml 1772 ml Output Urine Total 400 ml 750 ml # Voids 10 # Bowel Movements 0 0 1 Result Diagram: 10/21/1652810/21/16528 Objective Remarks GENERAL: patient lying in bed. Appears uncomfortable. SKIN: Warm and dry. HEAD: Normocephalic. EYES: No scleral icterus. No injection or drainage. NECK: Supple, trachea midline. No JVD. CARDIOVASCULAR: Regular rate and rhythm without murmurs, gallops, or rubs. RESPIRATORY: Breath sounds equal bilaterally. No accessory muscle use. GASTROINTESTINAL: Abdomen soft, non-tender, nondistended. MUSCULOSKELETAL: No cyanosis, or edema. right dorsum of foot still with swelling and erythema. No broken skin. No improvement from yesterday. BACK: Nontender without obvious deformity. No CVA tenderness. A/P Assessment and Plan Right foot cellulitis: Symptoms started 10/14. Failed outpatient antibiotics. No evidence of gout or septic joint. WBC normal. Neutrophils elevated at 81.6%. ESR improved from 10/18, 36-->19. -Zosyn, Vanc -Elevation -Tylenol, [place] prn pain -ID consultation -Monitor CBC = 10/21. No improvement in pain. Appreciate infectious disease assistance. Switched to cefazolin. Continue to monitor. HTN: Elevated on arrival but now improved without intervention. -Continue home amlodipine -Blood pressure stable. Continue to monitor. CKD: Upon review of prior labs, appears to have stage 2 CKD. Cr is 1.40 on admission -IVF for now -Monitor BMP -10/21. Creatinine was slightly increased. We'll continue to monitor. DVT prevention: SCDs. Discharge Planning patient can likely go home when he has improvement in pain and swelling. Timothy Andersen MD Oct 21, 2016 22:43
[2016-10-22] VITALS: BP 134/85; PULSE 71; RESP 20; TEMP 97.6; O2SAT 95
[2016-10-22] MEDS: ACETAMINOPHEN/HYDROcodone 325 MG/10 MG TAB PO PRN ×3 (04:01→19:41)
[2016-10-22] MEDS: SODIUM CHLOR 0.9% 1000 ML INJ 1,000 ML IV SCH ×2 (06:05→15:43)
[2016-10-22 08:00] VITALS: BP 138/92; PULSE 99; RESP 20; TEMP 95.9; O2SAT 99
[2016-10-22 08:08] LABS: AUTOMATED NEUTROPHIL # 4.3 TH/MM3 (1.8-7.7); BASOPHIL % 0.2 % (0.0-2.0); EOSINOPHIL % 0.7 % (0.0-4.0); HEMATOCRIT 37.2 % (39.0-51.0); HEMO FLAGS DIFF FINAL; LYMPH % 22.6 % (9.0-44.0); LYMPHOCYTE # 1.5 TH/MM3 (1.0-4.8); MEAN CELL VOLUME 87.8 FL (80.0-100.0); MEAN CORPUSCULAR HEMOGLOBIN 29.8 PG (27.0-34.0); MEAN CORPUSCULAR HGB CONC 33.9 % (32.0-36.0); NEUT % 66.5 % (16.0-70.0); PLATELET COUNT 255 TH/MM3 (150-450); RED BLOOD COUNT 4.24 MIL/MM3 (4.50-5.90); RED CELL DISTRIBUTION WIDTH 12.8 % (11.6-17.2); WHITE BLOOD COUNT 6.4 TH/MM3 (4.0-11.0)
[2016-10-22 08:15] LABS: POTASSIUM 4.2 MEQ/L (3.5-5.1)
[2016-10-22 08:22] LABS: BICARBONATE 26.9 MEQ/L (21.0-32.0)
[2016-10-22] MEDS: SODIUM CHLORIDE 0.9% FLUSH 10 ML FLUSH IV FLUSH SCH ×2 (08:28→19:40)
[2016-10-22] MEDS: DOCUSATE SODIUM 100 MG CAP PO SCH ×2 (08:28→19:41)
[2016-10-22 12:00] VITALS: BP 123/77; PULSE 66; RESP 20; TEMP 96.7; O2SAT 97
[2016-10-22] MEDS: VANCOMYCIN INJ 1,800 MG in SODIUM CHLORID 0.9% 500 ML INJ 500 ML IV SCH (15:46)
--- NOTE | 2016-10-22 15:52 | HHI.PR ---
Subjective Remarks She is seen this morning around 11 AM. Slight improvement in pain and swelling in the right foot. Denies any chest pain or shortness of breath. Denies any nausea or vomiting. Patient later requesting to be placed on regular diet, discontinued diabetic diet. is brought in cookies. A1c 6.6 in 2016, essentially a diagnosis of diabetes. Continue diabetic diet. Objective Vital Signs Date Time Temp Pulse Resp B/P Pulse Ox O2 Delivery O2 Flow Rate FiO2 10/22/16 08:00 95.9 99 20 138/92 99 10/22/16 04:00 10/22/16 00:00 97.6 71 20 134/85 95 10/21/16 20:00 98.3 71 20 147/92 99 10/21/16 16:00 95.5 69 20 150/86 99 I/O 10/21/16 10/21/16 10/21/16 10/22/16 10/22/16 10/22/16 07:00 15:00 23:00 07:00 15:00 23:00 Intake Total 2012 ml 1700 ml 1400 ml Output Total 750 ml 1150 ml 400 ml Balance 1262 ml 1700 ml -1150 ml 1000 ml Intake Oral 240 ml 1700 ml IV Total 1772 ml 1400 ml Output Urine Total 750 ml 1150 ml 400 ml # Voids 10 # Bowel Movements 0 1 Result Diagram: 10/22/1662410/22/16624 Objective Remarks GENERAL: patient lying in bed. Appears comfortable from yesterday.. Alert and oriented 3. SKIN: Warm and dry. HEAD: Normocephalic. EYES: No scleral icterus. No injection or drainage. NECK: Supple, trachea midline. No JVD. CARDIOVASCULAR: Regular rate and rhythm without murmurs, gallops, or rubs. RESPIRATORY: Breath sounds equal bilaterally. No accessory muscle use. GASTROINTESTINAL: Abdomen soft, non-tender, nondistended. MUSCULOSKELETAL: No cyanosis, or edema. right dorsum of foot still with swelling and erythema. No broken skin. Slight improvement from yesterday. BACK: Nontender without obvious deformity. No CVA tenderness. A/P Assessment and Plan Right foot cellulitis: Symptoms started 10/14. Failed outpatient antibiotics. No evidence of gout or septic joint. WBC normal. Neutrophils elevated at 81.6%. ESR improved from 4/4, 36-->19. -Continue antibiotics as per infectious disease. -Elevation -Tylenol, [place] prn pain -ID consultation -Monitor CBC = 10/21. No improvement in pain. Appreciate infectious disease assistance. Switched to cefazolin. Continue to monitor. = Slight improvement in pain and swelling. We'll order uric acid level. Repeat A1c. HTN: Elevated on arrival but now improved without intervention. -Continue home amlodipine -Blood pressure stable. Continue to monitor. CKD: Upon review of prior labs, appears to have stage 2 CKD. Cr is 1.40 on admission -IVF for now -Monitor BMP -10/21. Creatinine was slightly increased. We'll continue to monitor. = Creatinine improved. Continue to monitor. //Diabetes mellitus. Based on A1c 6.6 in 2016. Continue diabetic diet and sliding scale DVT prevention: SCDs. Discharge Planning patient can likely go home when he has improvement in pain and swelling. Timothy Andersen MD Oct 22, 2016 15:52
[2016-10-22 16:00] VITALS: BP 127/79; PULSE 64; RESP 20; TEMP 97; O2SAT 95
--- NOTE | 2016-10-22 17:48 | HHI.IDPN ---
Subjective Subjective Remarks ID FU DR. PLATA PT IN NAD. RIGHT FOOT IS STILL V PAINFUL. 10/10 W. WEIGHT BEARING Allergies: Coded Allergies: No Known Allergies (Verified , 10/20/16) Review of Systems Constitutional Constitutional Remarks NO FEVER OR CHILLS Eyes Eyes Remarks NO PAIN OR SWELLING GI/Abdomen GI/Abdomen Remarks NO NVD Integumentary Skin Remarks RIGHT FOOT IS REDNESS BETTER Psychiatric Psychiatric: Normal Mood Objective . Vital Signs Date Time Temp Pulse Resp B/P Pulse Ox O2 Delivery O2 Flow Rate FiO2 10/22/16 16:00 97.0 64 20 127/79 95 10/22/16 12:00 96.7 66 20 123/77 97 10/22/16 08:00 95.9 99 20 138/92 99 10/22/16 04:00 10/22/16 00:00 97.6 71 20 134/85 95 10/21/16 20:00 98.3 71 20 147/92 99 10/21/16 10/21/16 10/22/16 15:00 23:00 07:00 Intake Total 1700 ml 1400 ml Output Total 1150 ml 400 ml Balance 1700 ml -1150 ml 1000 ml Intake Oral 1700 ml IV Total 1400 ml Output Urine Total 1150 ml 400 ml # Voids 10 # Bowel Movements 1 . Laboratory Tests Test 10/21/16 10/22/16 05:29 06:25 White Blood Count 7.7 TH/MM3 6.4 TH/MM3 Red Blood Count 4.41 MIL/MM3 4.24 MIL/MM3 Hemoglobin 12.8 GM/DL 12.6 GM/DL Hematocrit 38.6 % 37.2 % Mean Corpuscular Volume 87.4 FL 87.8 FL Mean Corpuscular Hemoglobin 29.0 PG 29.8 PG Mean Corpuscular Hemoglobin 33.2 % 33.9 % Concent Red Cell Distribution Width 12.6 % 12.8 % Platelet Count 245 TH/MM3 255 TH/MM3 Mean Platelet Volume 8.1 FL 8.2 FL Neutrophils (%) (Auto) 67.4 % 66.5 % Lymphocytes (%) (Auto) 19.3 % 22.6 % Monocytes (%) (Auto) 12.1 % 10.0 % Eosinophils (%) (Auto) 1.0 % 0.7 % Basophils (%) (Auto) 0.2 % 0.2 % Neutrophils # (Auto) 5.2 TH/MM3 4.3 TH/MM3 Lymphocytes # (Auto) 1.5 TH/MM3 1.5 TH/MM3 Monocytes # (Auto) 0.9 TH/MM3 0.6 TH/MM3 Eosinophils # (Auto) 0.1 TH/MM3 0.0 TH/MM3 Basophils # (Auto) 0.0 TH/MM3 0.0 TH/MM3 CBC Comment DIFF FINAL DIFF FINAL Differential Comment Laboratory Tests Test 10/21/16 10/22/16 05:29 06:25 Sodium Level 141 MEQ/L 142 MEQ/L Potassium Level 4.2 MEQ/L 4.2 MEQ/L Chloride Level 108 MEQ/L 108 MEQ/L Carbon Dioxide Level 26.3 MEQ/L 26.9 MEQ/L Anion Gap 7 MEQ/L 7 MEQ/L Blood Urea Nitrogen 16 MG/DL 9 MG/DL Creatinine 1.50 MG/DL 1.30 MG/DL Estimat Glomerular Filtration 60 ML/MIN 71 ML/MIN Rate Random Glucose 101 MG/DL 94 MG/DL Calcium Level 8.6 MG/DL 8.3 MG/DL Total Bilirubin 0.4 MG/DL Aspartate Amino Transf 16 U/L (AST/SGOT) Alanine Aminotransferase 32 U/L (ALT/SGPT) Alkaline Phosphatase 84 U/L Total Protein 6.9 GM/DL Albumin 2.8 GM/DL Physical Exam GENERAL : NAD, LYING IN BED, OBESE HEENT: PERRL NS NO JVD CHEST : RRR LUNGS CTA ABD : SOFT BS EXT : RIGHT FOOT REDNESS BETTER, SWELLING SEEMS TO BE A LITTLE BETTER NO OPEN WOUNDS Assessment & Plan Diagnosis: (1) Cellulitis of right foot Plan: CONTINUE ANCEF/ VANCOMYCIN AND FU FOLLOW TROUGH WILL FU (2) Toe pain, right (3) Failure of outpatient treatment (4) Type 2 diabetes mellitus (5) Obesity Jaz Lopez MACHINE HE[employer] SEAT [employer]TER Oct 22, 2016 17:48
[2016-10-22 18:39] LABS: URIC ACID 3.4 MG/DL (2.6-7.2)
[2016-10-22 20:18] VITALS: BP 145/83; PULSE 66; RESP 20; TEMP 98; O2SAT 98
[2016-10-23 00:18] VITALS: BP 137/85; PULSE 68; RESP 20; TEMP 98.5; O2SAT 98
[2016-10-23] MEDS: ACETAMINOPHEN/HYDROcodone 325 MG/10 MG TAB PO PRN ×3 (01:44→21:12)
[2016-10-23] MEDS: SODIUM CHLOR 0.9% 1000 ML INJ 1,000 ML IV SCH ×3 (01:44→20:49)
[2016-10-23 08:00] VITALS: BP 137/85; PULSE 61; RESP 18; TEMP 97.5; O2SAT 97
[2016-10-23] MEDS: SODIUM CHLORIDE 0.9% FLUSH 10 ML FLUSH IV FLUSH SCH ×2 (08:06→20:48)
[2016-10-23] MEDS: DOCUSATE SODIUM 100 MG CAP PO SCH ×2 (08:07→20:48)
--- NOTE | 2016-10-23 10:55 | HHI.PR ---
Subjective Remarks Follow-up for cellulitis right foot. Patient states foot pain is about the same. Patient admits to sweats and denies any fevers or chills. He denies any chest pain, shortness of breath, abdominal pain, vomiting, or diarrhea. Objective Vitals Vital Signs Date Time Temp Pulse Resp B/P Pulse Ox O2 Delivery O2 Flow Rate FiO2 10/23/16 08:00 97.5 61 18 137/85 97 10/23/16 00:18 98.5 68 20 137/85 98 10/22/16 20:18 98.0 66 20 145/83 98 10/22/16 16:00 97.0 64 20 127/79 95 10/22/16 12:00 96.7 66 20 123/77 97 I/O 10/22/16 10/22/16 10/22/16 10/23/16 10/23/16 10/23/16 07:00 15:00 23:00 07:00 15:00 23:00 Intake Total 1400 ml 900 ml 1962 ml 800 ml Output Total 400 ml 1025 ml 550 ml Balance 1000 ml -125 ml 1412 ml 800 ml Intake Oral 900 ml IV Total 1400 ml 1962 ml 800 ml Output Urine Total 400 ml 1025 ml 550 ml # Bowel Movements 1 0 Result Diagram: 10/22/1625 10/22/16 0625 Objective Remarks GENERAL: Well-developed patient in no apparent distress sleeping when I enter the room SKIN: Warm and dry. Erythema over the dorsal right foot. There is an approximately 3 x 4 cm blister proximal to the right fourth and fifth toes, questionable purulence under the surface. HEAD: Atraumatic. Normocephalic. CARDIOVASCULAR: Regular rate and rhythm. RESPIRATORY: No accessory muscle use. Clear to auscultation. Breath sounds equal bilaterally. GASTROINTESTINAL: Abdomen soft, non-tender, nondistended. MUSCULOSKELETAL: Edema right foot. 2+ R DP pulse. NEUROLOGICAL: Awake and alert. Normal speech. PSYCHIATRIC: Appropriate mood and affect; insight and judgment normal. Urinary Catheter: No Vascular Central Line Catheter: No A/P Problem List: (1) Cellulitis of right foot ICD Code: L03.115 Status: Acute (2) Failure of outpatient treatment ICD Code: Z78.9 Status: Acute (3) Hypertension ICD Code: I10 Status: Acute Assessment and Plan Right foot cellulitis: Symptoms started 10/14. Failed outpatient antibiotics. No evidence of gout or septic joint. WBC count remains normal. Neutrophils elevated at 81.6% on admission but now improved. ESR improved from 10/18, 36--> 19. Uric acid level normal. -Continue antibiotics as per infectious disease, Ancef and Vancomycin -Elevation -Tylenol, [place] prn pain -10/23: Now has a blister over dorsal R foot, possible purulence under the surface. Foot does not appear improved. Soft tissue US obtained showing mildly complex loculated fluid collection in the subcutaneous tissues referring to blistered area. Podiatry consulted. HTN: Elevated on arrival. -Continue home amlodipine -Hypotensive this morning but MAP intact. Continue to monitor. CKD: Upon review of prior labs, appears to have stage 2 CKD. Cr was 1.40 on admission became worse yesterday but improved today at 1.30. -Continue IVF -Monitor BMP Diabetes mellitus. Based on A1c 6.6 in 2016. Continue diabetic diet , education. -New Hb A1c pending. DVT prevention: SCDs. Attending Statement The exam, history, and the medical decision-making described in the above note were completed with the assistance of the mid-level provider. I reviewed and agree with the findings presented. I attest that I had a [id number] encounter with the patient on the same day, and personally performed and documented my assessment and findings in the medical record.patient seen this morning. Blister over right foot. Agree with podiatry consult. Problem Qualifiers (1) Hypertension: Qualified Code: I10 - Essential hypertension Leeanna Rivera Oct 23, 2016 10:55 Timothy Andersen MD Oct 23, 2016 20:56
[2016-10-23 11:58] VITALS: BP 97/63; PULSE 70; RESP 18; TEMP 99.6; O2SAT 100
[2016-10-23 13:43] LABS: HEMOGLOBIN A1a 1.5 %; HEMOGLOBIN A1b 1.7 %; HEMOGLOBIN Ao 84.5 %; HEMOGLOBIN LA1C 1.3 %; HEMOGLOBIN P3 3.4 %
[2016-10-23] MEDS ORDERED: VANCOMYCIN TROUGH ONE (15:45)
[2016-10-23 16:00] VITALS: BP 145/98; PULSE 75; RESP 16; TEMP 97.5; O2SAT 95
[2016-10-23] MEDS: VANCOMYCIN INJ 1,800 MG in SODIUM CHLORID 0.9% 500 ML INJ 500 ML IV SCH (16:07)
--- NOTE | 2016-10-23 17:57 | RADHPO ---
EXAM DATE/TIME: 10/23/2016 15:29 [facility] COMPARISON: No previous studies available for comparison. INDICATIONS : Right foot swelling. MEDICAL HISTORY : Hypercholesterolemia. Hypertension. Arthritis. SURGICAL HISTORY : Throat surgery. Left knee surgery. Cyst removed from left neck. ENCOUNTER: Initial ACUITY: 1 day PAIN SCORE: 3/10 LOCATION: Right foot. AREA EVALUATED: Right foot dorsal distal area just prox to toes. FINDINGS: There is an elongated superficial fluid collection on the dorsum of the foot just proximal to the toe s. There is some increased vascularity in the surrounding soft tissues. CONCLUSION: 1. Mildly complex loculated fluid collection in the subcutaneous tissues on the dorsum of the forefoo t just proximal to the toes measuring up to 3.7 cm in diameter and about 4 mm in thickness. Mateus Razo MD on October 23, 2016 at 17:54 Board Certified Radiologist. This report was verified electronically.
[2016-10-23 20:00] VITALS: BP 143/85; PULSE 73; RESP 18; TEMP 97.9; O2SAT 99
[2016-10-24] VITALS: BP 114/80; PULSE 68; RESP 18; TEMP 97; O2SAT 97
[2016-10-24] MEDS: ACETAMINOPHEN/HYDROcodone 325 MG/10 MG TAB PO PRN ×4 (03:03→19:37)
--- NOTE | 2016-10-24 07:48 | HHI.IDPN ---
Subjective Subjective Remarks Rt foot still painful Developed a bullous lesion No fever Antibiotics IV Vancomycin and Cefazolin Lines Peripheral Past Medical History HTN Past Surgical History Cyst removal left side of neck Allergies: Coded Allergies: No Known Allergies (Verified , 10/20/16) Review of Systems Constitutional Constitutional Remarks No fever chills GI/Abdomen GI/Abdomen Remarks No nausea, vomiting or diarrhea Objective . Vital Signs Date Time Temp Pulse Resp B/P Pulse Ox O2 Delivery O2 Flow Rate FiO2 10/24/16 00:00 97.0 68 18 114/80 97 10/23/16 20:00 97.9 73 18 143/85 99 10/23/16 16:00 97.5 75 16 145/98 95 10/23/16 11:58 99.6 70 18 97/63 100 10/23/16 08:00 97.5 61 18 137/85 97 10/23/16 10/23/16 10/24/16 15:00 23:00 07:00 Intake Total 630 ml 1196 ml 1069 ml Output Total 1601 ml 500 ml 1750 ml Balance -971 ml 696 ml -681 ml Intake Oral 630 ml 240 ml 340 ml IV Total 956 ml 729 ml Output Urine Total 1600 ml 500 ml 1750 ml Stool Total 1 ml # Voids 3 # Bowel Movements 1 0 Physical Exam GENERAL: This is a obese patient, in no apparent distress. SKIN: Rt foot warm , inflamed with a bullous lesion on rt dorsal surface. Rt DP well felt. Rt leg selling and warmth better HEAD: Atraumatic. Normocephalic. No temporal or scalp tenderness. EYES: Pupils equal round and reactive. Extraocular motions intact. No scleral icterus. No injection or drainage. ENT: Nose without bleeding, purulent drainage or septal hematoma. Throat without erythema, tonsillar hypertrophy or exudate. Uvula midline. Airway patent. NECK: Trachea midline. No JVD or lymphadenopathy. Supple, nontender, no meningeal signs. CARDIOVASCULAR: Regular rate and rhythm without murmurs, gallops, or rubs. RESPIRATORY: Clear to auscultation. Breath sounds equal bilaterally. No wheezes , rales, or rhonchi. GASTROINTESTINAL: Abdomen soft, non-tender, nondistended. No hepato-splenomegaly , or palpable masses. No guarding. MUSCULOSKELETAL: Extremities without clubbing, cyanosis No joint tenderness, effusion, or edema noted. No calf tenderness. Negative Homans sign bilaterally. Rt foot inflamed, warm with a bullous lesion on dorsal surface NEUROLOGICAL: Awake and alert. Cranial nerves II through XII intact. Motor and sensory grossly within normal limits. Five out of 5 muscle strength in all muscle groups. Normal speech. Assessment & Plan Diagnosis: (1) Cellulitis of right foot Plan: Notes US result Patient with a bullous lesion- may need some debridement- Consult Podiatry Continue IV Vancomycin Change Cefazolin to Unasyn (2) Hypertension (3) Failure of outpatient treatment Problem Qualifiers (1) Hypertension: Qualified Code: I10 - Essential hypertension Sloane Ramsey MD Oct 24, 2016 07:48
[2016-10-24 08:00] VITALS: BP 131/82; PULSE 65; RESP 18; TEMP 97.8; O2SAT 99
[2016-10-24] MEDS: SODIUM CHLOR 0.9% 1000 ML INJ 1,000 ML IV SCH ×3 (08:03→19:38)
[2016-10-24] MEDS: DOCUSATE SODIUM 100 MG CAP PO SCH ×2 (08:04→20:51)
[2016-10-24] MEDS: SODIUM CHLORIDE 0.9% FLUSH 10 ML FLUSH IV FLUSH SCH ×2 (08:04→21:00)
--- NOTE | 2016-10-24 08:07 | PD.CONS ---
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 Some sweats- no fever or chills. Today right foot apparent superficial blister about 4 cm right dorsal forefoot proximal to toes and mtp joints. Pt eating breakfast this morning and no acute distress Past Family Social History Allergies: Coded Allergies: No Known Allergies (Verified , 10/20/16) Physical Exam Vital Signs Vital Signs Date Time Temp Pulse Resp B/P Pulse Ox O2 Delivery O2 Flow Rate FiO2 10/24/16 00:00 97.0 68 18 114/80 97 10/23/16 20:00 97.9 73 18 143/85 99 10/23/16 16:00 97.5 75 16 145/98 95 10/23/16 11:58 99.6 70 18 97/63 100 Physical Exam GENERAL: This is a well-nourished, well-developed patient, in no apparent distress. SKIN: No rashes, ecchymoses or lesions. Cool and dry. HEAD: Atraumatic. Normocephalic. No temporal or scalp tenderness. EYES: Pupils equal round and reactive. Extraocular motions intact. No scleral icterus. No injection or drainage. ENT: Nose without bleeding, purulent drainage or septal hematoma. Throat without erythema, tonsillar hypertrophy or exudate. Uvula midline. Airway patent. NECK: Trachea midline. No JVD or lymphadenopathy. Supple, nontender, no meningeal signs. CARDIOVASCULAR: Regular rate and rhythm without murmurs, gallops, or rubs. RESPIRATORY: Clear to auscultation. Breath sounds equal bilaterally. No wheezes , rales, or rhonchi. GASTROINTESTINAL: Abdomen soft, non-tender, nondistended. No hepato-splenomegaly , or palpable masses. No guarding. MUSCULOSKELETAL: Extremities without clubbing, cyanosis, or edema. No joint tenderness, effusion, or edema noted. No calf tenderness. Negative Homans sign bilaterally. NEUROLOGICAL: Awake and alert. Cranial nerves II through XII intact. Motor and sensory grossly within normal limits. Five out of 5 muscle strength in all muscle groups. Normal speech. Laboratory Laboratory Tests Test 10/23/16 15:50 Vancomycin Level Trough 2.8 Result Diagram: 10/22/1662410/22/16624 Imaging Ultrasound showed superficial abscess 4 mm depth dorsal forefoot Course Right foot sensation and pulses intact Mild edema compred to contralateral side 4 cm bulla dorsal forefoot Can wiggle toes and move ankle up and down Assessment and Plan Assessment and Plan Right foot infection/abscess -Under sterile conditions using betadine prep the blister was lanced and culture taken and betadine wet to dry applied -Will order MRI because port I and d no tracking but hard to tell if deeper abscess at joint level -Medical management -BID Betadine wet to dry Thanks for the consult Rad Butler DPM Oct 24, 2016 08:07
[2016-10-24] MEDS: AMPICILLIN-SULBACTAM INJ 3 GM in SODIUM CHLORIDE 0.9% INJ 100 ML IV SCH ×3 (11:19→20:00)
[2016-10-24] MEDS: VANCOMYCIN INJ 1,800 MG in SODIUM CHLORID 0.9% 500 ML INJ 500 ML IV SCH (11:19)
[2016-10-24] MEDS: NYSTATIN 100,000 UNIT/GM CREAM 15 GM TOPICAL SCH ×2 (11:20→21:00)
[2016-10-24 12:00] VITALS: BP 141/77; PULSE 64; RESP 18; TEMP 97.6; O2SAT 99
--- NOTE | 2016-10-24 13:33 | HHI.PR ---
Subjective Remarks Patient seen this morning around 11 AM. Says he is feeling all right. Pain is under control. Denies any chest pain or shortness of breath. Discussed diabetic management, avoiding carbohydrates, sugars. Objective Vital Signs Date Time Temp Pulse Resp B/P Pulse Ox O2 Delivery O2 Flow Rate FiO2 10/24/16 08:00 97.8 65 18 131/82 99 10/24/16 00:00 97.0 68 18 114/80 97 10/23/16 20:00 97.9 73 18 143/85 99 10/23/16 16:00 97.5 75 16 145/98 95 I/O 10/23/16 10/23/16 10/23/16 10/24/16 10/24/16 10/24/16 07:00 15:00 23:00 07:00 15:00 23:00 Intake Total 800 ml 630 ml 1196 ml 1069 ml Output Total 1601 ml 500 ml 1750 ml Balance 800 ml -971 ml 696 ml -681 ml Intake Oral 630 ml 240 ml 340 ml IV Total 800 ml 956 ml 729 ml Output Urine Total 1600 ml 500 ml 1750 ml Stool Total 1 ml # Voids 3 # Bowel Movements 1 0 Result Diagram: 10/22/1662410/22/16624 Objective Remarks GENERAL: patient lying in bed. appears comfortable. Alert and oriented 3. SKIN: Warm and dry. HEAD: Normocephalic. EYES: No scleral icterus. No injection or drainage. NECK: Supple, trachea midline. No JVD. CARDIOVASCULAR: Regular rate and rhythm without murmurs, gallops, or rubs. RESPIRATORY: Breath sounds equal bilaterally. No accessory muscle use. GASTROINTESTINAL: Abdomen soft, non-tender, nondistended. MUSCULOSKELETAL: No cyanosis, or edema. Right foot dressed status post wound culture by podiatry. Peripheral perfusion intact. BACK: Nontender without obvious deformity. No CVA tenderness. A/P Assessment and Plan 10/24. Blister has been cultured. MRI pending. Switched to Zosyn per ID. ---- Right foot cellulitis: Symptoms started 10/14. Failed outpatient antibiotics. No evidence of gout or septic joint. WBC count remains normal. Neutrophils elevated at 81.6% on admission but now improved. ESR improved from 10/18, 36--> 19. Uric acid level normal. -Continue antibiotics as per infectious disease, Ancef and Vancomycin -Elevation -Tylenol, [place] prn pain -10/23: Now has a blister over dorsal R foot, possible purulence under the surface. Foot does not appear improved. Soft tissue US obtained showing mildly complex loculated fluid collection in the subcutaneous tissues referring to blistered area. Podiatry consulted. -10/23. Appreciate podiatry assistance. Follow up culture results. Await MRI. Initially patient was on Zosyn, ID changed to cefazolin, now changed to Unasyn. Appreciate ID assistance. HTN: Elevated on arrival. -Continue home amlodipine Vital signs stable today. Continue to monitor. CKD: Upon review of prior labs, appears to have stage 2 CKD. Cr was 1.40 on admission became worse yesterday but improved today 1:30.. -Continue IVF -Monitor BMP tomorrow. Diabetes mellitus. Based on A1c 6.6 in 2016., 6.7 this admission. - Continue diabetic diet ,education. DVT prevention: SCDs. Discharge Planning Pending podiatry workup with MRI. On IV antibiotics per ID. Timothy Andersen MD Oct 24, 2016 13:33
[2016-10-24 16:00] VITALS: BP 155/84; PULSE 75; RESP 20; TEMP 97.8; O2SAT 96
--- NOTE | 2016-10-24 16:12 | RADHPO ---
EXAM DATE/TIME: 10/24/2016 14:16 [facility] COMPARISON: No previous studies available for comparison. INDICATIONS : Abscess. CONTRAST: 20 cc Omniscan (gadodiamide) IV MEDICAL HISTORY : Hypercholesterolemia. Hypertension. Diabetes mellitus type 2. SURGICAL HISTORY : Right knee sx, cyst removed from neck. ENCOUNTER: Initial ACUITY: 3 day PAIN SCORE: 10/10 LOCATION: Top to lateral side of right foot. TECHNIQUE: Multiplanar, multisequence MRI examination was performed without contrast and after the intravenous a dministration of gadolinium. FINDINGS: BONE/CARTILAGE: Bone marrow signal is homogeneous. Articular cartilage signal is within normal limits. TENDONS: All of the visualized tendons are intact. MISCELLANEOUS: Along the dorsum of the fourth metatarsophalangeal joint there is a subcutaneous soft tissue fluid co llection with irregular margins and abnormal surrounding enhancement measuring 7.4 x 2.1 mm in diamet er. It runs a total length along the foot of approximately 2.7 cm. The fluid collection extends deep between the fourth and fifth toes. A second smaller fluid collection is identified along the plantar surface of the fourth toe. Flu id collection is located along the undersurface of the proximal phalanx. Soft tissue edema extends in to the mid foot to the tarsal region. Plantar aponeurosis is intact. Sinus tarsi is within normal limits. POST-CONTRAST: There are no other abnormal areas of enhancement on the post-contrast images. There is no evidence of osseous enhancement or destruction. CONCLUSION: Small subcutaneous fluid collections is on the dorsum and plantar surface of the four th toe and fourth metatarsophalangeal joint characteristic of clinically suspected abscesses. No evidence of osteomyelitis. Significant forefoot and midfoot soft tissue swelling especially along the dorsum of the foot. Andrew Young MD on October 24, 2016 at 15:58 Board Certified Radiologist. This report was verified electronically.
[2016-10-24 17:07] LABS: POTASSIUM 4.2 MEQ/L (3.5-5.1)
[2016-10-24 17:10] LABS: BICARBONATE 28.1 MEQ/L (21.0-32.0)
[2016-10-24] MEDS ORDERED: GADODIAMIDE PF 287 MG/ML 20 ML VIAL (for RAD MRI) IV ONE (18:01)
[2016-10-24 20:00] VITALS: BP 150/87; PULSE 66; RESP 20; TEMP 97.8; O2SAT 98
[2016-10-24 20:43] LABS: BASOPHIL % 0.3 % (0.0-2.0); EOSINOPHIL % 0.6 % (0.0-4.0); HEMATOCRIT 39.6 % (39.0-51.0); HEMO FLAGS DIFF FINAL; LYMPH % 26.6 % (9.0-44.0); LYMPHOCYTE # 1.7 TH/MM3 (1.0-4.8); MEAN CELL VOLUME 86.4 FL (80.0-100.0); MEAN CORPUSCULAR HEMOGLOBIN 29.1 PG (27.0-34.0); MEAN CORPUSCULAR HGB CONC 33.7 % (32.0-36.0); MONO % 9.2 % (0.0-8.0); NEUT % 63.3 % (16.0-70.0); PLATELET COUNT 329 TH/MM3 (150-450); RED BLOOD COUNT 4.58 MIL/MM3 (4.50-5.90); RED CELL DISTRIBUTION WIDTH 12.7 % (11.6-17.2); WHITE BLOOD COUNT 6.4 TH/MM3 (4.0-11.0)
[2016-10-25] VITALS: BP 145/92; PULSE 62; RESP 18; TEMP 97.5; O2SAT 98
[2016-10-25] MEDS: AMPICILLIN-SULBACTAM INJ 3 GM in SODIUM CHLORIDE 0.9% INJ 100 ML IV SCH ×3 (01:44→12:26)
[2016-10-25] MEDS: ACETAMINOPHEN/HYDROcodone 325 MG/10 MG TAB PO PRN ×3 (01:45→18:29)
[2016-10-25 04:00] VITALS: BP 133/88; PULSE 60; RESP 16; TEMP 97.1; O2SAT 98
[2016-10-25] MEDS: VANCOMYCIN INJ 1,800 MG in SODIUM CHLORID 0.9% 500 ML INJ 500 ML IV SCH ×2 (04:34→21:21)
[2016-10-25 06:12] LABS: AUTOMATED NEUTROPHIL # 3.4 TH/MM3 (1.8-7.7); BASOPHIL % 0.3 % (0.0-2.0); EOSINOPHIL % 0.8 % (0.0-4.0); HEMATOCRIT 39.3 % (39.0-51.0); HEMO FLAGS DIFF FINAL; LYMPH % 28.7 % (9.0-44.0); LYMPHOCYTE # 1.6 TH/MM3 (1.0-4.8); MEAN CELL VOLUME 87.2 FL (80.0-100.0); MEAN CORPUSCULAR HEMOGLOBIN 28.9 PG (27.0-34.0); MEAN CORPUSCULAR HGB CONC 33.1 % (32.0-36.0); MONO % 9.9 % (0.0-8.0); NEUT % 60.3 % (16.0-70.0); PLATELET COUNT 305 TH/MM3 (150-450); RED BLOOD COUNT 4.51 MIL/MM3 (4.50-5.90); RED CELL DISTRIBUTION WIDTH 12.6 % (11.6-17.2); WHITE BLOOD COUNT 5.6 TH/MM3 (4.0-11.0)
[2016-10-25 06:21] LABS: POTASSIUM 3.9 MEQ/L (3.5-5.1)
[2016-10-25 06:24] LABS: BICARBONATE 27.2 MEQ/L (21.0-32.0)
[2016-10-25] MEDS: SODIUM CHLORIDE 0.9% FLUSH 10 ML FLUSH IV FLUSH SCH ×2 (09:00→21:21)
[2016-10-25 09:23] VITALS: BP 146/84; PULSE 70; RESP 15; TEMP 97.2; O2SAT 100
--- NOTE | 2016-10-25 09:59 | HHI.PR ---
Subjective Remarks Patient walking around room. still with pain in left foot. Positive bowel movement. No chest pain or shortness of breath. Discussed MRI positive for small abscess. Objective Vital Signs Date Time Temp Pulse Resp B/P Pulse Ox O2 Delivery O2 Flow Rate FiO2 10/25/16 09:23 97.2 70 15 146/84 100 10/25/16 04:00 97.1 60 16 133/88 98 10/25/16 00:00 97.5 62 18 145/92 98 10/24/16 20:00 97.8 66 20 150/87 98 10/24/16 16:00 97.8 75 20 155/84 96 10/24/16 13:36 20 10/24/16 12:00 97.6 64 18 141/77 99 I/O 10/24/16 10/24/16 10/24/16 10/25/16 10/25/16 10/25/16 07:00 15:00 23:00 07:00 15:00 23:00 Intake Total 1069 ml 750 ml 480 ml 1780 ml Output Total 1750 ml 580 ml 200 ml Balance -681 ml 750 ml -100 ml 1580 ml Intake Oral 340 ml 750 ml 480 ml 280 ml IV Total 729 ml 1500 ml Output Urine Total 1750 ml 580 ml 200 ml # Voids 3 3 # Bowel Movements 0 1 0 0 Result Diagram: 10/25/1635 10/25/16534 Objective Remarks GENERAL: patient lying in bed. appears comfortable. Alert and oriented 3. SKIN: Warm and dry. HEAD: Normocephalic. EYES: No scleral icterus. No injection or drainage. NECK: Supple, trachea midline. No JVD. CARDIOVASCULAR: Regular rate and rhythm without murmurs, gallops, or rubs. RESPIRATORY: Breath sounds equal bilaterally. No accessory muscle use. GASTROINTESTINAL: Abdomen soft, non-tender, nondistended. MUSCULOSKELETAL: No cyanosis, or edema. Right foot dressed. BACK: Nontender without obvious deformity. No CVA tenderness. A/P Assessment and Plan 10/25. f/u cultures. MRI with small abscesses. May need debridement. Appreciate podiatry assistance ---- Right foot cellulitis: Symptoms started 10/14. Failed outpatient antibiotics. No evidence of gout or septic joint. WBC count remains normal. Neutrophils elevated at 81.6% on admission but now improved. ESR improved from 4/4, 36--> 19. Uric acid level normal. -Continue antibiotics as per infectious disease, Ancef and Vancomycin -Elevation -Tylenol, [place] prn pain -10/23: Now has a blister over dorsal R foot, possible purulence under the surface. Foot does not appear improved. Soft tissue US obtained showing mildly complex loculated fluid collection in the subcutaneous tissues referring to blistered area. Podiatry consulted. -10/23. Appreciate podiatry assistance. Follow up culture results. Await MRI. Initially patient was on Zosyn, ID changed to cefazolin, now changed to Unasyn. Appreciate ID assistance. -10/24. Culture by podiatry. -10/25. MRI with small abscesses. Podiatry likely need to debride. HTN: Elevated on arrival. -Continue home amlodipine Vital signs stable today. Continue to monitor. CKD: Upon review of prior labs, appears to have stage 2 CKD. Cr was 1.40 on admission became worse yesterday but improved. -Continue IVF -[place] stable. Diabetes mellitus. Based on A1c 6.6 in 2016., 6.7 this admission. - Continue diabetic diet -Await public health educator. DVT prevention: SCDs. Discharge Planning Pending podiatry workup with MRI. On IV antibiotics per ID. Timothy Andersen MD Oct 25, 2016 09:59
[2016-10-25] MEDS: DOCUSATE SODIUM 100 MG CAP PO SCH ×2 (10:07→21:00)
[2016-10-25] MEDS: NYSTATIN 100,000 UNIT/GM CREAM 15 GM TOPICAL SCH ×2 (10:08→21:21)
[2016-10-25 12:23] VITALS: BP 129/74; PULSE 75; RESP 16; TEMP 98.6; O2SAT 96
[2016-10-25] MEDS: SODIUM CHLOR 0.9% 1000 ML INJ 1,000 ML IV SCH (12:27)
--- NOTE | 2016-10-25 16:24 | PD.POD ---
Subjective Podiatric Problems Pt not seen at bedside today, discussed care with nurse and doctor. Plan is surgery at 12:30 for abscess excision. Will see pt tomorrow morning to discuss proposed plan Past Med/Surg/Social History Past Medical History HEENT: DENIES HX OF: Cataracts, Glaucoma, Recurrent ear infections, Recurrent sinusitis, Other HEENT history Endocrine: DENIES HX OF: Diabetes mellitus, Graves disease, Hyperthyroidism, Hypothyroidism, Other endocrine history Respiratory: DENIES HX OF: Allergies/hay fever, Asthma, COPD, CPAP use, Sleep apnea, Other respiratory history Cardiovascular: REPORTS HX OF: Hypertension, DENIES HX OF: Abdominal aortic aneurysm, Angina, Atrial fibrillation, Cardiac arrhythmias, Coronary artery disease, Deep venous thrombosis, Heart failure, Heart valve disease, Hyperlipidemia, Myocardial infarction, Peripheral vascular dz, Other CV history Gastrointestinal: DENIES HX OF: Colitis, GERD, Irritable bowel syndrome, Liver disease, Pancreatitis, Peptic ulcer disease, Other GI history Genitourinary: DENIES HX OF: Chlamydia, Gonorrhea, Hemodialysis, Herpes genitalis, Human papillomavirus, Kidney disease, Kidney failure, Kidney stones, Past UTI, Peritoneal dialysis, Urinary incontinence, Other history Genitourinary - male: DENIES HX OF: Benign prost. hyperplasia, Erectile dysfunction, Prostatitis, Testicular problems, Undescended testicle Musculoskeletal: REPORTS HX OF: Osteoarthritis, Other musculoskeletal hx, DENIES HX OF: Fibromyalgia, Fractures, Gout, Osteoporosis, Rheumatoid arthritis Cancer/Hematology: DENIES HX OF: Anemia, Blood cancer, Brain cancer, Breast cancer, Colorectal cancer, Endocrine cancer, Eye cancer, GI cancer, cancer, Kidney cancer, Leukemia, Liver cancer, Lung cancer, Lymphoma, Musculoskeletal cancer, Neurologic cancer, Oral cancer, Skin cancer, Stomach cancer, Thyroid cancer, Other cancer/hematology Cancer - male: DENIES HX OF: Prostate cancer, Testicular cancer Infectious disease: DENIES HX OF: AIDS, Chickenpox, Hepatitis, HIV, Measles, MRSA, Mumps, Polio, Positive PPD, Rheumatic fever, Rubella, Syphilis, Tuberculosis, Vanc-resistant enterococc, Other inf disease history Integumentary: DENIES HX OF: Acne, Eczema, Psoriasis, Other integumentary hx Neurologic: DENIES HX OF: ADHD, Autism, Dementia, Developmental delay, Headaches, Multiple sclerosis, Parkinson disease, Peripheral neuropathy, Restless leg syndrome, Seizures, Stroke, Transient ischemic attack, Other neurologic history Psychiatric: DENIES HX OF: Anorexia nervosa, Anxiety, Bipolar disorder, Bulimia , Depression, Schizophrenia, Other psychiatric history Genetic/metabolic: DENIES HX OF: Cystic fibrosis, Down syndrome, Other genetic history, Other metabolic history Past Surgical History HEENT: REPORTS HX OF: Other throat surgery (Over 10 years ago), DENIES HX OF: Cataract extraction, Dental surgery, Laryngectomy, Tonsillectomy, Other head surgery, Other eye surgery, Other ear surgery, Other nasal surgery Endocrine: DENIES HX OF: Parathyroidectomy, Thyroid surgery, Other endocrine surgery Respiratory: DENIES HX OF: Bronchoscopy, Lobectomy, Other chest surgery Cardiovascular: DENIES HX OF: Angiogram, Angioplasty, CABG surgery, Carotid endarterectomy, Coronary stent, Heart transplant, Pacemaker, Valve replacement, Other cardiac surgery Gastrointestinal: DENIES HX OF: Appendectomy, Cholecystectomy, Colectomy, subtotal, Colectomy, total, Gastric bypass, Hernia repair, Splenectomy, Other GI surgery Genitourinary: DENIES HX OF: Bladder surgery, Kidney stone extraction, Nephrectomy, Other surgery Genitourinary - male: DENIES HX OF: Prostatectomy, TURP, Vasectomy Musculoskeletal: REPORTS HX OF: Other musculoskeletal srg Integumentary: DENIES HX OF: Skin cancer removal, Other integumentary surg Neurologic: DENIES HX OF: Craniotomy, Spinal surgery, Other neurologic surgery Breast: DENIES HX OF: Breast biopsy, Lumpectomy, Mastectomy, bilateral, Mastectomy, left, Mastectomy, right, Other breast surgery Social History Smoking Status: Current Some Day Smoker Objective Vital Signs Vital Signs Date Time Temp Pulse Resp B/P Pulse Ox O2 Delivery O2 Flow Rate FiO2 10/25/16 12:23 98.6 75 16 129/74 96 10/25/16 09:23 97.2 70 15 146/84 100 10/25/16 04:00 97.1 60 16 133/88 98 10/25/16 00:00 97.5 62 18 145/92 98 10/24/16 20:00 97.8 66 20 150/87 98 Coded Allergies: No Known Allergies (Verified , 10/20/16) Assessment & Plan A/P Right foot forefoot abscess/cellulitis -Discussed with nurse and Hospitalist. Pt stable with no real improvement or digression in foot over last several days -Plan is see patient tomorrow and consent for I and D in OR for deep small abscesses. -Plan for surgery at 12:30 in [place] to right lateral forefoot Continue medical managment and regular diabetic controlled diet I will see patient tomorrow morning to lay out a plan for him with his consent Thanks, Rad Hidalgo DPM Oct 25, 2016 16:24
--- NOTE | 2016-10-25 17:07 | HHI.IDPN ---
Note Infectious Disease Note ID coverage. Admitted for foot infection. Post I&D of wound. Culture has MRSA. Noted pain 8/10 scale. No fever Antibiotics IV Vancomycin. Unasyn. Lines Peripheral Past Medical History HTN Past Surgical History Cyst removal left side of neck Allergies: Coded Allergies: No Known Allergies (Verified , 10/20/16) Objective Vital Signs Date Time Temp Pulse Resp B/P Pulse Ox O2 Delivery O2 Flow Rate FiO2 10/25/16 12:23 98.6 75 16 129/74 96 10/25/16 09:23 97.2 70 15 146/84 100 10/25/16 04:00 97.1 60 16 133/88 98 10/25/16 00:00 97.5 62 18 145/92 98 10/24/16 20:00 97.8 66 20 150/87 98 Laboratory Tests Test 10/24/16 10/25/16 20:38 05:35 White Blood Count 6.4 TH/MM3 5.6 TH/MM3 Red Blood Count 4.58 MIL/MM3 4.51 MIL/MM3 Hemoglobin 13.3 GM/DL 13.0 GM/DL Hematocrit 39.6 % 39.3 % Mean Corpuscular Volume 86.4 FL 87.2 FL Mean Corpuscular Hemoglobin 29.1 PG 28.9 PG Mean Corpuscular Hemoglobin 33.7 % 33.1 % Concent Red Cell Distribution Width 12.7 % 12.6 % Platelet Count 329 TH/MM3 305 TH/MM3 Mean Platelet Volume 7.2 FL 7.7 FL Neutrophils (%) (Auto) 63.3 % 60.3 % Lymphocytes (%) (Auto) 26.6 % 28.7 % Monocytes (%) (Auto) 9.2 % 9.9 % Eosinophils (%) (Auto) 0.6 % 0.8 % Basophils (%) (Auto) 0.3 % 0.3 % Neutrophils # (Auto) 4.0 TH/MM3 3.4 TH/MM3 Lymphocytes # (Auto) 1.7 TH/MM3 1.6 TH/MM3 Monocytes # (Auto) 0.6 TH/MM3 0.6 TH/MM3 Eosinophils # (Auto) 0.0 TH/MM3 0.0 TH/MM3 Basophils # (Auto) 0.0 TH/MM3 0.0 TH/MM3 CBC Comment DIFF FINAL DIFF FINAL Differential Comment Sodium Level 140 MEQ/L Potassium Level 3.9 MEQ/L Chloride Level 106 MEQ/L Carbon Dioxide Level 27.2 MEQ/L Anion Gap 7 MEQ/L Blood Urea Nitrogen 11 MG/DL Creatinine 1.20 MG/DL Estimat Glomerular Filtration 78 ML/MIN Rate Random Glucose 95 MG/DL Calcium Level 8.9 MG/DL IMAGING: Foot MRI 10/24/16 0000 Signed Impressions: Service Date/Time: Monday, October 24, 2016 14:16 - CONCLUSION: Small subcutaneous fluid collections is on the dorsum and plantar surface of the fourth toe and fourth metatarsophalangeal joint characteristic of clinically suspected abscesses. No evidence of osteomyelitis. Significant forefoot and midfoot soft tissue swelling especially along the dorsum of the foot. Andrew Young MD Soft Tissue Ultrasound 10/23/16 0000 Signed Impressions: Service Date/Time: Sunday, October 23, 2016 15:29 - CONCLUSION: 1. Mildly complex loculated fluid collection in the subcutaneous tissues on the dorsum of the forefoot just proximal to the toes measuring up to 3.7 cm in diameter and about 4 mm in thickness. Mateus Razo MD Physical Exam GENERAL: This is a obese patient, in no apparent distress. HEENT: Pupils equal round and reactive. Extraocular motions intact. No scleral icterus. CARDIOVASCULAR: Regular rate and rhythm without murmurs, gallops, or rubs. RESPIRATORY: Clear to auscultation. Breath sounds equal bilaterally. GASTROINTESTINAL: Abdomen soft, non-tender, nondistended. MUSCULOSKELETAL: Extremities without clubbing, cyanosis or edema. SKIN: Rt foot in surgical dressing. warm. NEUROLOGICAL: Awake and alert. Normal speech. Non focal. Assessment & Plan Diagnosis: (1) Cellulitis/Abscess of right foot. MRSA. Plan: Continue IV Vancomycin Stop Unasyn. Follow AIMEE of the MRSA. (2) Hypertension (3) Failure of outpatient treatment Jorge Wick MD Oct 25, 2016 17:07
[2016-10-25 17:35] VITALS: BP 144/87; PULSE 69; RESP 15; TEMP 96.6; O2SAT 100
[2016-10-25 20:00] VITALS: BP 147/81; PULSE 69; RESP 20; TEMP 96.9; O2SAT 99
[2016-10-26] VITALS: BP 131/87; PULSE 62; RESP 19; TEMP 97.7; O2SAT 99
[2016-10-26] MEDS: ACETAMINOPHEN/HYDROcodone 325 MG/10 MG TAB PO PRN ×3 (00:47→18:09)
[2016-10-26] MEDS: SODIUM CHLOR 0.9% 1000 ML INJ 1,000 ML IV SCH ×2 (00:47→09:15)
[2016-10-26 06:32] LABS: AUTOMATED NEUTROPHIL # 3.2 TH/MM3 (1.8-7.7); BASOPHIL % 0.3 % (0.0-2.0); EOSINOPHIL % 0.9 % (0.0-4.0); HEMATOCRIT 38.6 % (39.0-51.0); HEMO FLAGS DIFF FINAL; LYMPH % 29.1 % (9.0-44.0); LYMPHOCYTE # 1.5 TH/MM3 (1.0-4.8); MEAN CELL VOLUME 87.5 FL (80.0-100.0); MEAN CORPUSCULAR HEMOGLOBIN 29.1 PG (27.0-34.0); MEAN CORPUSCULAR HGB CONC 33.3 % (32.0-36.0); MONO % 10.1 % (0.0-8.0); NEUT % 59.6 % (16.0-70.0); PLATELET COUNT 321 TH/MM3 (150-450); RED BLOOD COUNT 4.41 MIL/MM3 (4.50-5.90); RED CELL DISTRIBUTION WIDTH 12.8 % (11.6-17.2); WHITE BLOOD COUNT 5.2 TH/MM3 (4.0-11.0)
[2016-10-26 06:42] LABS: POTASSIUM 3.9 MEQ/L (3.5-5.1)
[2016-10-26 06:46] LABS: BICARBONATE 27.5 MEQ/L (21.0-32.0)
[2016-10-26 08:00] VITALS: BP 151/92; PULSE 66; RESP 20; TEMP 96.7; O2SAT 98
[2016-10-26] MEDS: DOCUSATE SODIUM 100 MG CAP PO SCH ×2 (09:00→21:00)
[2016-10-26] MEDS: SODIUM CHLORIDE 0.9% FLUSH 10 ML FLUSH IV FLUSH SCH ×2 (09:00→21:00)
[2016-10-26] MEDS: NYSTATIN 100,000 UNIT/GM CREAM 15 GM TOPICAL SCH ×2 (09:14→22:04)
[2016-10-26 12:00] VITALS: BP 134/83; PULSE 65; RESP 20; TEMP 97.5; O2SAT 99
[2016-10-26] MEDS ORDERED: PHARMACY ORDERED LAB ONE (13:45)
--- NOTE | 2016-10-26 14:14 | HHI.PR ---
Subjective Remarks Patient seen this morning. Says he is feeling all right. Pain in foot continues. Denies any chest pain or shortness of breath. No fevers. Objective Vital Signs Date Time Temp Pulse Resp B/P Pulse Ox O2 Delivery O2 Flow Rate FiO2 10/26/16 12:00 97.5 65 20 134/83 99 10/26/16 08:00 96.7 66 20 151/92 98 10/26/16 00:00 97.7 62 19 131/87 99 10/25/16 20:00 96.9 69 20 147/81 99 10/25/16 17:35 96.6 69 15 144/87 100 I/O 10/25/16 10/25/16 10/25/16 10/26/16 10/26/16 10/26/16 07:00 15:00 23:00 07:00 15:00 23:00 Intake Total 1780 ml 1440 ml 240 ml Output Total 200 ml 250 ml 700 ml Balance 1580 ml 1190 ml -460 ml Intake Oral 280 ml 1440 ml 240 ml IV Total 1500 ml Output Urine Total 200 ml 250 ml 700 ml # Voids 4 # Bowel Movements 0 2 0 Result Diagram: 10/26/16 0610 10/26/16 0610 Objective Remarks GENERAL: patient lying in bed. appears comfortable. Alert and oriented 3. Exam unchanged. SKIN: Warm and dry. HEAD: Normocephalic. EYES: No scleral icterus. No injection or drainage. NECK: Supple, trachea midline. No JVD. CARDIOVASCULAR: Regular rate and rhythm without murmurs, gallops, or rubs. RESPIRATORY: Breath sounds equal bilaterally. No accessory muscle use. GASTROINTESTINAL: Abdomen soft, non-tender, nondistended. MUSCULOSKELETAL: No cyanosis, or edema. Right foot dressed. BACK: Nontender without obvious deformity. No CVA tenderness. A/P Assessment and Plan 10/26. MRSA abscesses and right foot. Dietary plans to debride 10/27 ---- Right foot cellulitis: Symptoms started 10/14. Failed outpatient antibiotics. No evidence of gout or septic joint. WBC count remains normal. Neutrophils elevated at 81.6% on admission but now improved. ESR improved from 10/18, 36--> 19. Uric acid level normal. -Continue antibiotics as per infectious disease, Ancef and Vancomycin -Elevation -Tylenol, [place] prn pain -10/23: Now has a blister over dorsal R foot, possible purulence under the surface. Foot does not appear improved. Soft tissue US obtained showing mildly complex loculated fluid collection in the subcutaneous tissues referring to blistered area. Podiatry consulted. -10/23. Appreciate podiatry assistance. Follow up culture results. Await MRI. Initially patient was on Zosyn, ID changed to cefazolin, now changed to Unasyn. Appreciate ID assistance. -10/24. Culture by podiatry. -10/25. MRI with small abscesses. Podiatry likely need to debride. HTN: Elevated on arrival. -Continue home amlodipine Vital signs stable today. Continue to monitor. CKD: Upon review of prior labs, appears to have stage 2 CKD. Cr was 1.40 on admission became worse yesterday but improved. -Continue IVF -Renin stable. Diabetes mellitus. Based on A1c 6.6 in 2016., 6.7 this admission. - Continue diabetic diet -Await certified adapted physical educator. DVT prevention: SCDs. Discharge Planning Planned debridement by podiatry on 10/27. Timothy Andersen MD Oct 26, 2016 14:14
[2016-10-26 16:00] VITALS: BP 151/90; PULSE 79; RESP 20; TEMP 97.8; O2SAT 100
[2016-10-26] MEDS: VANCOMYCIN INJ 1,400 MG in SODIUM CHLORID 0.9% 500 ML INJ 500 ML IV SCH (17:30)
[2016-10-26 20:00] VITALS: BP 141/94; PULSE 66; RESP 20; TEMP 97.3; O2SAT 99
[2016-10-27] VITALS: BP 131/88; PULSE 66; RESP 20; TEMP 97.3; O2SAT 99
[2016-10-27] MEDS: SODIUM CHLOR 0.9% 1000 ML INJ 1,000 ML IV SCH ×3 (02:56→17:22)
[2016-10-27] MEDS: ACETAMINOPHEN/HYDROcodone 325 MG/10 MG TAB PO PRN ×4 (02:57→21:30)
[2016-10-27 05:34] LABS: CHLORIDE 108 MEQ/L (98-107); SODIUM (NA) 141 MEQ/L (136-145)
[2016-10-27 05:39] LABS: ANION GAP 8 MEQ/L (5-15); BICARBONATE 25.2 MEQ/L (21.0-32.0)
[2016-10-27 05:40] LABS: BLOOD UREA NITROGEN 12 MG/DL (7-18)
[2016-10-27 05:42] LABS: ALT (GPT) 50 U/L (12-78)
[2016-10-27 05:43] LABS: AST (GOT) 21 U/L (15-37); GLOMERULAR FILTRATION RATE 78 ML/MIN (>89)
[2016-10-27 05:44] LABS: TOTAL BILIRUBIN ADULT 0.3 MG/DL (0.2-1.0)
[2016-10-27 05:45] LABS: ALKALINE PHOSPHATASE 82 U/L (45-117)
[2016-10-27 08:00] VITALS: BP 134/89; PULSE 67; RESP 20; TEMP 97.2; O2SAT 97
[2016-10-27] MEDS: VANCOMYCIN INJ 1,400 MG in SODIUM CHLORID 0.9% 500 ML INJ 500 ML IV SCH ×2 (08:44→17:14)
[2016-10-27] MEDS: DOCUSATE SODIUM 100 MG CAP PO SCH ×2 (08:51→21:00)
[2016-10-27] MEDS: SODIUM CHLORIDE 0.9% FLUSH 10 ML FLUSH IV FLUSH SCH ×2 (08:53→21:00)
[2016-10-27] MEDS: NYSTATIN 100,000 UNIT/GM CREAM 15 GM TOPICAL SCH ×2 (08:53→21:31)
[2016-10-27] MEDS ORDERED: PROPOFOL 200 MG/20 ML AMP IV ONE (10:33)
[2016-10-27] MEDS ORDERED: NEOMYCIN/POLYMYXIN 1 ML G.U. IRRIGANT IRRIGATION ONE (10:35)
[2016-10-27] MEDS ORDERED: BUPIVACAINE HCL PF 0.5% 30 ML VIAL ONE ×2 (11:19→12:08)
[2016-10-27] MEDS ORDERED: LIDOCAINE HCL 1% 30 ML VIAL ONE ×2 (11:19→12:08)
[2016-10-27] MEDS ORDERED: LACTATED RINGER'S 1000 ML INJ 1,000 ML ONE (12:44)
--- NOTE | 2016-10-27 13:01 | HHI.PR ---
Subjective Remarks Patient seen and examined today with Dr Chen. Patient still complaining of pain 10/10 in the foot only minimally relieved with pain medicine down 8/10. Plans for surgical intervention today. Objective Vitals Vital Signs Date Time Temp Pulse Resp B/P Pulse Ox O2 Delivery O2 Flow Rate FiO2 10/27/16 11:47 97.5 67 18 144/91 98 10/27/16 10:24 18 10/27/16 08:00 97.2 67 20 134/89 97 10/27/16 00:00 97.3 66 20 131/88 99 10/26/16 20:00 97.3 66 20 141/94 99 10/26/16 16:00 97.8 79 20 151/90 100 I/O 10/26/16 10/26/16 10/26/16 10/27/16 10/27/16 10/27/16 07:00 15:00 23:00 07:00 15:00 23:00 Intake Total 240 ml 1000 ml 240 ml 240 ml Output Total 700 ml 800 ml 250 ml 820 ml Balance -460 ml 200 ml -10 ml -580 ml Intake Oral 240 ml 1000 ml 240 ml 240 ml Output Urine Total 700 ml 800 ml 250 ml 820 ml # Bowel Movements 0 1 0 1 Result Diagram: 10/26/16 0610 10/27/16 0453 Objective Remarks GENERAL: Well-developed, well-nourished, in no acute distress. alert and orientated HEENT: Head is normocephalic without any lesions or masses noted. Facial features are symmetric. Eyes: Extraocular muscles are intact. Conjunctivae were clear. NECK: Supple without any masses. Trachea midline no deviation. No JVD, CARDIAC: Regular rhythm, regular rate. S1/S2 are heard. No murmurs gallops or rubs. LUNGS: Clear to auscultation bilaterally. No wheeze, rhonchi or rales. No use of accessory muscles on inspiration or expiration. ABDOMEN: Soft, nontender. Nondistended. Bowel sounds heard in all 4 quadrants. No organomegaly or masses. Negative rebound, negative guarding EXTREMITIES: No edema, pulses are equal bilaterally. No cyanosis or clubbing. Right foot in bandage NEUROLOGY: Mood and affect appear appropriate. Cranial nerves II through XII grossly intact. Moving all extremities, speech is clear Urinary Catheter: No Vascular Central Line Catheter: No A/P Problem List: (1) Failure of outpatient treatment ICD Code: Z78.9 Status: Acute (2) Cellulitis of right foot ICD Code: L03.115 Status: Acute Assessment and Plan MRSA abscesses and right foot: Complicated by diabetic patient and failed outpatient management. MRI does show small abscess and wound culture did indicate MRSA Podiatry following the patient, plans for incision and debridement today Infectious disease consulted and recommended continuation of vancomycin Pain control with Lortab and [place] Hypertension: Blood pressure still mildly elevated Patient is on amlodipine 10 mg daily Add lisinopril 5 mg daily Chronic kidney disease stage II: Renal functions appear to be stable Patient has been on IV fluids Avoid nephrotoxins Diabetes mellitus. He will and A1c 6.7 Continue diabetic diet Continue monitor glucose [place] [address] DVT prevention: Sequential compression devices Written by Deven Tomas PA-C, acting as scribe for Dr. Chen on 10/27/16 at 1045. The documentation accurately reflects the work and decisions performed face-to- face by Dr. Chen on 10/27/16 at 1045. This note was transcribed by scribe Deven Tomas PA-C. I, Dr. Cam Chen personally performed the history, physical exam, and medical decision making; and confirmed the accuracy of the information in the transcribed note. Authenticated by Dr. Cam Chen on 10/27/16 at 19:39. Deven Tomas Oct 27, 2016 13:01 Cam Chen MD Oct 27, 2016 19:41
[2016-10-27 13:21] VITALS: PULSE 87
[2016-10-27] MEDS ORDERED: MIDAZOLAM HCL 2 MG/2 ML VIAL ONE (13:29)
[2016-10-27 14:00] VITALS: BP 147/96; PULSE 62; RESP 20; TEMP 96.5; O2SAT 98
[2016-10-27 16:00] VITALS: BP 144/91; PULSE 75; RESP 20; TEMP 97; O2SAT 97
[2016-10-27] MEDS ORDERED: HYDROmorphone HCL PF 1 MG/ML VIAL IV PRN (17:30)
[2016-10-27 20:00] VITALS: BP 154/93; PULSE 74; RESP 20; TEMP 97.6; O2SAT 98
[2016-10-28] VITALS: BP 143/98; PULSE 67; RESP 20; TEMP 97.1; O2SAT 98
[2016-10-28] MEDS: ACETAMINOPHEN/HYDROcodone 325 MG/10 MG TAB PO PRN ×2 (04:09→09:31)
[2016-10-28] MEDS: SODIUM CHLOR 0.9% 1000 ML INJ 1,000 ML IV SCH (04:10)
[2016-10-28] MEDS ORDERED: PHARMACY ORDERED LAB ONE (05:45)
[2016-10-28] MEDS: VANCOMYCIN INJ 1,400 MG in SODIUM CHLORID 0.9% 500 ML INJ 500 ML IV SCH (06:05)
[2016-10-28 07:56] VITALS: BP 129/93; PULSE 65; RESP 20; TEMP 97.9; O2SAT 99
--- NOTE | 2016-10-28 07:57 | PD.POD ---
Subjective Podiatric Problems Pt doing well at bedside Pain score: 2 Past Med/Surg/Social History Past Medical History HEENT: DENIES HX OF: Cataracts, Glaucoma, Recurrent ear infections, Recurrent sinusitis, Other HEENT history Endocrine: DENIES HX OF: Diabetes mellitus, Graves disease, Hyperthyroidism, Hypothyroidism, Other endocrine history Respiratory: DENIES HX OF: Allergies/hay fever, Asthma, COPD, CPAP use, Sleep apnea, Other respiratory history Cardiovascular: REPORTS HX OF: Hypertension, DENIES HX OF: Abdominal aortic aneurysm, Angina, Atrial fibrillation, Cardiac arrhythmias, Coronary artery disease, Deep venous thrombosis, Heart failure, Heart valve disease, Hyperlipidemia, Myocardial infarction, Peripheral vascular dz, Other CV history Gastrointestinal: DENIES HX OF: Colitis, GERD, Irritable bowel syndrome, Liver disease, Pancreatitis, Peptic ulcer disease, Other GI history Genitourinary: DENIES HX OF: Chlamydia, Gonorrhea, Hemodialysis, Herpes genitalis, Human papillomavirus, Kidney disease, Kidney failure, Kidney stones, Past UTI, Peritoneal dialysis, Urinary incontinence, Other history Genitourinary - male: DENIES HX OF: Benign prost. hyperplasia, Erectile dysfunction, Prostatitis, Testicular problems, Undescended testicle Musculoskeletal: REPORTS HX OF: Osteoarthritis, Other musculoskeletal hx, DENIES HX OF: Fibromyalgia, Fractures, Gout, Osteoporosis, Rheumatoid arthritis Cancer/Hematology: DENIES HX OF: Anemia, Blood cancer, Brain cancer, Breast cancer, Colorectal cancer, Endocrine cancer, Eye cancer, GI cancer, cancer, Kidney cancer, Leukemia, Liver cancer, Lung cancer, Lymphoma, Musculoskeletal cancer, Neurologic cancer, Oral cancer, Skin cancer, Stomach cancer, Thyroid cancer, Other cancer/hematology Cancer - male: DENIES HX OF: Prostate cancer, Testicular cancer Infectious disease: DENIES HX OF: AIDS, Chickenpox, Hepatitis, HIV, Measles, MRSA, Mumps, Polio, Positive PPD, Rheumatic fever, Rubella, Syphilis, Tuberculosis, Vanc-resistant enterococc, Other inf disease history Integumentary: DENIES HX OF: Acne, Eczema, Psoriasis, Other integumentary hx Neurologic: DENIES HX OF: ADHD, Autism, Dementia, Developmental delay, Headaches, Multiple sclerosis, Parkinson disease, Peripheral neuropathy, Restless leg syndrome, Seizures, Stroke, Transient ischemic attack, Other neurologic history Psychiatric: DENIES HX OF: Anorexia nervosa, Anxiety, Bipolar disorder, Bulimia , Depression, Schizophrenia, Other psychiatric history Genetic/metabolic: DENIES HX OF: Cystic fibrosis, Down syndrome, Other genetic history, Other metabolic history Past Surgical History HEENT: REPORTS HX OF: Other throat surgery (Over 10 years ago), DENIES HX OF: Cataract extraction, Dental surgery, Laryngectomy, Tonsillectomy, Other head surgery, Other eye surgery, Other ear surgery, Other nasal surgery Endocrine: DENIES HX OF: Parathyroidectomy, Thyroid surgery, Other endocrine surgery Respiratory: DENIES HX OF: Bronchoscopy, Lobectomy, Other chest surgery Cardiovascular: DENIES HX OF: Angiogram, Angioplasty, CABG surgery, Carotid endarterectomy, Coronary stent, Heart transplant, Pacemaker, Valve replacement, Other cardiac surgery Gastrointestinal: DENIES HX OF: Appendectomy, Cholecystectomy, Colectomy, subtotal, Colectomy, total, Gastric bypass, Hernia repair, Splenectomy, Other GI surgery Genitourinary: DENIES HX OF: Bladder surgery, Kidney stone extraction, Nephrectomy, Other surgery Genitourinary - male: DENIES HX OF: Prostatectomy, TURP, Vasectomy Musculoskeletal: REPORTS HX OF: Other musculoskeletal srg Integumentary: DENIES HX OF: Skin cancer removal, Other integumentary surg Neurologic: DENIES HX OF: Craniotomy, Spinal surgery, Other neurologic surgery Breast: DENIES HX OF: Breast biopsy, Lumpectomy, Mastectomy, bilateral, Mastectomy, left, Mastectomy, right, Other breast surgery Social History Smoking Status: Current Some Day Smoker Objective Vital Signs Vital Signs Date Time Temp Pulse Resp B/P Pulse Ox O2 Delivery O2 Flow Rate FiO2 10/28/16 00:00 97.1 67 20 143/98 98 10/27/16 20:00 97.6 74 20 154/93 98 10/27/16 16:00 97.0 75 20 144/91 97 10/27/16 15:48 18 10/27/16 14:00 96.5 62 20 147/96 98 10/27/16 13:45 98.1 67 16 143/91 96 Room Air 10/27/16 13:35 72 16 145/84 96 Room Air 10/27/16 13:21 87 10/27/16 13:19 98.3 87 16 123/83 99 Simple Mask 4 10/27/16 11:47 97.5 67 18 144/91 98 10/27/16 08:00 97.2 67 20 134/89 97 Coded Allergies: *MDRO Multi-Drug Resistant Organism (Verified Adverse Reaction, Unknown, ) MRSA (foot)-10/24/16 Physical Exam Remarks Right foot pulses, edema improved, lateral forefoot incision c/d/i Ionoform packing showed hemosiderin deposit, no pus Sutures intact Assessment & Plan A/P Right foot forefoot abscess/cellulitis POD 1 Dressing changed to betadine wet to dry Wound will heal secondarily Pt will not be able to get home health due to self pay Pt will need a more frequent dressing change than I can provide therefor they will refer to Dr. Rosas for dressing and wound care and I will see in office for suture removal Pt to go home on Bactrim Pt shown how to change dressing if he can do it on his own, which I am concerned he will do Rad Butler DPM Oct 28, 2016 07:57
[2016-10-28] MEDS: DOCUSATE SODIUM 100 MG CAP PO SCH (09:00)
[2016-10-28] MEDS: NYSTATIN 100,000 UNIT/GM CREAM 15 GM TOPICAL SCH (09:00)
[2016-10-28] MEDS: SODIUM CHLORIDE 0.9% FLUSH 10 ML FLUSH IV FLUSH SCH (09:00)
[2016-10-28] MEDS ORDERED: LISINOPRIL 5 MG TAB PO SCH (09:00)
[2016-10-28] MEDS ORDERED: BACT800T5 PO (09:51)
--- NOTE | 2016-10-28 09:52 | HHI.DCPOC ---
Discharge Care Plan Diagnosis: (1) Cellulitis of right foot Goals to Promote Your Health * To prevent worsening of your condition and complications * To maintain your health at the optimal level Directions to Meet Your Goals Take your medications as prescribed Follow your dietary instruction Follow activity as directed Keep your appointments as scheduled Take your immunizations and boosters as scheduled If your symptoms worsen call your PCP, if no PCP go to Urgent Care Center or Emergency Room Smoking is Dangerous to Your Health. Avoid second hand smoke Call the 24-hour hour crisis hotline for domestic abuse at Deven Tomas Oct 28, 2016 09:52
[2016-10-28] MEDS ORDERED: HYDR-3583 PO (10:42)
[2016-10-28 12:05] VITALS: BP 138/95; PULSE 68; RESP 20; TEMP 96.6; O2SAT 99
[2016-10-28] MEDS ORDERED: WALKER WHEELS/F1 MIS (12:15)
--- NOTE | 2016-10-28 12:23 | HHI.DS ---
Discharge Summary Admission Date Oct 20, 2016 at 13:29 Discharge Date: Oct 28, 2016 Admitting Diagnosis cellulitis and edema of the right leg (1) Failure of outpatient treatment ICD Code: Z78.9 Diagnosis: Principal (2) Cellulitis of right foot ICD Code: L03.115 Diagnosis: Principal (3) Foot abscess, right ICD Code: L02.611 Diagnosis: Principal Procedures 10/27/16: Incision and drainage of right foot abscess Brief History - From Admission 51-year-old male with history of hypertension presents with complaint of swelling and redness to his right foot. He states the swelling started on 10/14/16 and the redness started on 10/16/16. He states the foot is warm. Pain is throbbing. Nothing makes it better or worse. He states he had a slight headache at home but denies any fevers or chills. Patient presented to the ED on 10/15/16 with right fourth toe pain and was prescribed naproxen, states that toe is swollen. He came back to ED on 10/18/16 and was treated for cellulitis and prescribed Bactrim and Clindamycin which he has been taking as prescribed since. Denies any chest pain, shortness of breath, abdominal pain, nausea, vomiting or diarrhea. Denies history of gout. Denies stepping on anything. CBC/BMP: 10/26/16 0610 10/27/16 0453 Significant Findings Laboratory Tests Test 10/26/16 10/27/16 10/28/16 06:10 04:53 05:50 Red Blood Count 4.41 MIL/MM3 (4.50-5.90) Hemoglobin 12.8 GM/DL (13.0-17.0) Hematocrit 38.6 % (39.0-51.0) Monocytes (%) (Auto) 10.1 % (0.0-8.0) Estimat Glomerular Filtration 78 ML/MIN (>89) 78 ML/MIN (>89) Rate Chloride Level 108 MEQ/L (98-107) Albumin 3.1 GM/DL (3.4-5.0) Vancomycin Level Trough 10.4 MCG/ML (5.0-10.0) Imaging Last Impressions Foot MRI 10/24/16 0000 Signed Impressions: Service Date/Time: Monday, October 24, 2016 14:16 - CONCLUSION: Small subcutaneous fluid collections is on the dorsum and plantar surface of the fourth toe and fourth metatarsophalangeal joint characteristic of clinically suspected abscesses. No evidence of osteomyelitis. Significant forefoot and midfoot soft tissue swelling especially along the dorsum of the foot. Andrew Young MD Soft Tissue Ultrasound 10/23/16 0000 Signed Impressions: Service Date/Time: Sunday, October 23, 2016 15:29 - CONCLUSION: 1. Mildly complex loculated fluid collection in the subcutaneous tissues on the dorsum of the forefoot just proximal to the toes measuring up to 3.7 cm in diameter and about 4 mm in thickness. Mateus Razo MD PE at Discharge GENERAL: Well-developed, well-nourished, in no acute distress. alert and orientated HEENT: Head is normocephalic without any lesions or masses noted. Facial features are symmetric. Eyes: Extraocular muscles are intact. Conjunctivae were clear. NECK: Supple without any masses. Trachea midline no deviation. No JVD, CARDIAC: Regular rhythm, regular rate. S1/S2 are heard. No murmurs gallops or rubs. LUNGS: Clear to auscultation bilaterally. No wheeze, rhonchi or rales. No use of accessory muscles on inspiration or expiration. ABDOMEN: Soft, nontender. Nondistended. Bowel sounds heard in all 4 quadrants. No organomegaly or masses. Negative rebound, negative guarding EXTREMITIES: No edema, pulses are equal bilaterally. No cyanosis or clubbing. Right foot in bandage NEUROLOGY: Mood and affect appear appropriate. Cranial nerves II through XII grossly intact. Moving all extremities, speech is clear Hospital Course 51-year-old male who originally presented to hospital because of right lower extremity swelling and redness. Patient originally presented to the emergency department 10/18/16 it was scribed clindamycin and Bactrim and he was taking that since that time however it was indicated that did not improve. The patient came back to the hospital on 10/20/16 and was evaluated and recommended admission for failing outpatient management. Patient was admitted to the hospital on . Started on empirical antibiotics to include clindamycin, cefazolin, vancomycin. Wound culture was taken on 10/24/16 which did show MRSA. Patient was continued on vancomycin. Podiatry was consulted for further recommendations and management. Podiatry evaluated the patient on 10/24/16. MRI was ordered to evaluate for abscess/osteomyelitis. MRI did show small amount of subcutaneous fluid collections on the dorsum and plantar surface of the fourth toe and fourth tarsal phalangeal joint area. 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 Patient has undergone surgical incision and drainage at this time. It was indicated that the wound appears to be clear at this time. He did remove the packing without any gross exudate material. He is indicating the patient can be discharged home with Bactrim. Outpatient wound care. Follow-up in his office on Monday. Case management was consulted to try to evaluate for possible home health care versus outpatient wound care with [facility] or Dr. Rosas his office. Patient care assistance was consulted for blue card and outpatient follow-up. At this time awaiting were waiting for case management arranging history made for discharge. Pt Condition on Discharge: Stable Discharge Disposition: Discharge Home Discharge Time: > 30 minutes Discharge Instructions DIET: Follow Instructions for: Diabetic Diet Activities you can perform: Non Weight Bearing Other Activity Instructions: Nonweightbearing right lower extremity until cleared by podiatry Follow up Referrals: PCP Follow-up - 2-[address] Rosas Podiatry - 2-3 Days with Rad Butler DPAnupam New Medications: Sulfamethoxazole-Trimethoprim (Bactrim DS) 800-160 Mg Tab 1 TAB PO BID Infection #20 Ref 0 TAB Walker with Front Wheels (Walker with Front Wheels) 1 Mis Mis 1 EA .ROUTE DIRECTED #1 Ref 0 EA Hydrocodone-Acetaminophen (Hydrocodone-Acetaminophen) 10-325 mg Tab 1 TAB PO Q6H PRN PAIN SCALE 7 TO 10 #28 TAB Continued Medications: Amlodipine (Amlodipine) 10 Mg Tab 10 MG PO DAILY Blood Pressure Management #30 Ref 0 TAB Discontinued Medications: Clindamycin (Clindamycin) 150 Mg Cap 2 TAB PO Q6H Infection #80 CAP Naproxen (Naproxen) 500 Mg Tab 500 MG PO Q12HR PRN PAIN SCALE 1 TO 10 #14 Ref 0 TAB Sulfamethoxazole-Trimethoprim (Bactrim DS) 800-160 Mg Tab 1 TAB PO BID Infection #20 TAB Additional Information Written by Deven Tomas, acting as scribe for Dr. Chen on 10/28/16 at 12: 17. This note was transcribed by scribe Deven Tomas. I, Dr. Cam Chen personally performed the history, physical exam, and medical decision making; and confirmed the accuracy of the information in the transcribed note. Authenticated by Dr. Cam Chen on 10/28/16 at 13:46. Deven Tomas Oct 28, 2016 12:23 Cam Chen MD Oct 28, 2016 13:46
--- NOTE | 2016-10-28 19:28 | MP ---
cc: KLEVER RUVALCABA DPM DATE OF SURGERY: 10/27/2016 DATE OF : 1965 PREOPERATIVE DIAGNOSIS Right foot abscess. POSTOPERATIVE DIAGNOSIS Right foot abscess. PROCEDURE 1. Irrigation and debridement of right foot. 2. Deep culture. 3. Open packing. SURGEON Klever Ruvalcaba DPM [facility] Staff. ESTIMATED BLOOD LOSS 20 cc. ANESTHESIA MAC with 10 cc of 1% lidocaine plain preoperatively and 9 cc of 0.5 Marcaine plain postoperatively. SPECIMEN SENT Deep tissue for culture. COMPLICATIONS None. TOURNIQUET 250 mmHg on the right ankle for 8 minutes. INDICATION This patient is a diabetic male who was admitted for cellulitis on 10/20 with no improvement. A blister formed which was debrided at the bedside and no further improvement from there. MRI showed a deep abscess in the fourth interspace of the right foot. The patient is requiring surgical intervention for the problem at this time due to risk sepsis. The patient understands the procedure to be performed today as well as potential risks and complications involved. All questions were answered. The risks and benefits were discussed at length. PROCEDURE IN DETAIL The patient was brought to the operating room, placed in supine position. Pneumatic ankle tourniquet was placed about the right ankle. The foot was anesthetized with 10 cc of 1% lidocaine plain. Once the patient was anesthetized, the foot was scrubbed, prepped and draped in the usual sterile fashion and a 4 cm longitudinal incision was made over the fourth interspace, immediately purulent drainage came from the wound. Care was taken to go deep to avoid all vital structures. There was a large pocket of purulence. Culture was taken for evaluation. Next, a rongeur and sharp dissection was used to remove all necrotic tissue. The area was copiously flushed with one liter of saline and again a rongeur was used to remove any necrotic tissue. There was found to be a void where the abscess was therefore nylon was used to close the proximal incision and quarter-inch iodoform packing was used to fill the void. Cautery was used to all bleeders except for slow oozing which was normal and Betadine-impregnated Adaptic, 4x4, ABD, cast padding and an Bertram was used to wrap the foot. The patient handled anesthesia well. Klever Ruvalcaba DPM ZPB/BJF /1:23 PM /7:01 PM MTDVidya
[2016-11-01] MEDS ORDERED: AMLO10TA2 PO (12:05)
== END 2016-10-28 14:18 | disposition home or self-care (01) | DRG 571 ==
LOC: PHEFT 10:44 → PHEDA 13:27 → OBSVTOIN 13:29 → PH3B 15:04
PROVIDERS: ADMIT Internal Medicine; ATTEND Internal Medicine
PROC: 0H9MXZX Drainage of Right Foot Skin, External Approach, Diagnostic (ICD-10-PCS; 2016-10-24)
PROC: 0JBQ0ZZ Excision of Right Foot Subcutaneous Tissue and Fascia, Open Approach (ICD-10-PCS; principal; 2016-10-27 12:40)
DX: L03.115 Cellulitis of right lower limb (principal); L02.611 Cutaneous abscess of right foot; I12.9 Hypertensive chronic kidney disease with stage 1 through stage 4 chronic kidney disease, or unspecified chronic kidney disease; E11.9 Type 2 diabetes mellitus without complications; E66.9 Obesity, unspecified; N18.2 Chronic kidney disease, stage 2 (mild); Z68.31 Body mass index [BMI] 31.0-31.9, adult; F17.290 Nicotine dependence, other tobacco product, uncomplicated
CPT/HCPCS: 73720; 76999; 80048; 80053; 80202; 83036; 84550; 85025; 85652; 86403; 87015; 87070; 87102; 87116; 87147; 87176; 87186; 87205; 87206; 96374; 96375; A9579; J0295; J0690; J1885; J2250; J2543; J3010; J3370; J7030; J7040; J7120

== ENCOUNTER 2017-02-11 16:49 | Emergency (ER) | payer SELFPAY ==
[~2017-02-11] VITALS: Ht 167.6 cm; Wt 100.0 kg
[~2017-02-11 16:49] MED LIST changes: -CLIN1CAP5 PO; +HYDR-3583 PO; -NAPR500T PO; +WALKER WHEELS/F1 MIS
[2017-02-11 16:51] VITALS: BP 142/86; PULSE 79; RESP 18; TEMP 98.5; O2SAT 98
--- NOTE | 2017-02-11 17:44 | PD ---
HPI Chief Complaint: Skin Problem Time Seen by Provider: 17:39 Travel History International Travel<30 days: No Contact w/Intl Traveler<30days: No Traveled to known affect area: No History of Present Illness HPI 52-year-old male presents emergency Department with complaint of 2 little red bumps to the lateral aspect of his left calf 2 days. Says the bumps are itchy. Is concern he may account bit by a spider. Denies fever, vomiting. Denies paresthesias, loss of sensation, decreased range of motion, decreased strength to the affected extremity. Has been wiping the area with alcohol for symptom management. Has no other medical complaints. No other modifying factors or associated signs and symptoms. 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 2 small pimple-like, nonpustular, red bumps noted to the lateral aspect of the left calf; with minimal erythema surrounding consistent with possible scratching; without drainage; no signs of infection. Left lower extremity is supple and non-tense with 2+ pedal pulses and sensory intact and without erythema or edema. HEAD: Atraumatic. Normocephalic. EYES: Pupils equal and round. No scleral icterus. No injection or drainage. ENT: Mucosa pink and moist. Airway patent. NECK: Trachea midline. CARDIOVASCULAR: Regular rate. RESPIRATORY: No accessory muscle use. GASTROINTESTINAL: Obese. MUSCULOSKELETAL: No obvious deformities. No clubbing. No cyanosis. No edema. NEUROLOGICAL: Awake and alert. Oriented 3. No obvious cranial nerve deficits. Motor grossly within normal limits. Normal speech. PSYCHIATRIC: Appropriate mood and affect; insight and judgment normal. Data Data Last Documented VS Vital Signs Date Time Temp Pulse Resp B/P Pulse Ox O2 Delivery O2 Flow Rate FiO2 02/11/17 16:51 98.5 79 18 142/86 98 MDM Medical Screen Exam Complete: Yes Emergency Medical Condition: No Differential Diagnosis Insect bite, nonspecific rash, medical clearance Narrative Course 52-year-old male with 2 small reddened bumps to the left lateral calf area that her itch she. They appear to be consistent with possible insect bites. There are no signs of infection. The patient is afebrile nontoxic appearing. He denies fever, vomiting. Vital signs are stable and the patient is stable for outpatient follow-up and treatment. The patient has no urgent or emergent medical complaints. There is no emergent or urgent medical need at this time. I instructed the patient to follow up with their primary care provider. A medical screening exam was performed: At the time of evaluation the presenting medical condition was determined not to be of an emergent nature. The patient was given the option of receiving additional care, but declined. Patient was given options for additional community resources from which to obtain care. The Patient Has Been advised to seek medical attention for their presenting complaint. The patient has been advised to return to the ER at any time if an emergent condition develops. Primary Impression: Encounter for medical screening examination Condition: Stable Cindy Naylor [facility] Feb 11, 2017 17:44
== END 2017-02-11 17:46 | disposition left against medical advice (07) ==
LOC: NEPK 16:49
DX: R21 Rash and other nonspecific skin eruption (principal); Z86.14 Personal history of Methicillin resistant Staphylococcus aureus infection
CPT/HCPCS: 99281

== ENCOUNTER 2017-07-01 14:35 | Emergency (ER) | payer SELFPAY ==
[~2017-07-01] VITALS: Ht 167.6 cm; Wt 105.0 kg
[~2017-07-01 14:35] MED LIST changes: -BACT800T5 PO; -HYDR-3583 PO; -WALKER WHEELS/F1 MIS
[2017-07-01 14:36] VITALS: BP 186/84; PULSE 80; RESP 12; TEMP 98.1; O2SAT 98
--- NOTE | 2017-07-01 15:04 | PD ---
HPI Chief Complaint: Skin Problem Time Seen by Provider: 14:51 Travel History International Travel<30 days: No Contact w/Intl Traveler<30days: No Traveled to known affect area: No History of Present Illness HPI The patient is a 52-year-old [place] male who presents emergency department for dry and cracked skin on the feet bilaterally. The patient has a history of dry feet with previous cracking of the skin and subsequent infection of the right foot requiring surgery. He now states he has difficulty walking on the right foot. He was told that if he ever has an open wound on the bottom of the foot to be evaluated in the emergency department. He states his skin is dry and cracked on the bottom of the left foot. He states there is a small painful area with the skin is open but denies any drainage. He does state it is somewhat painful. He has been applying Polysporin over the affected area. He denies any significant swelling or erythema. He denies any associated fever , chills, or sweats. The patient states he currently does not have a job, just recently got insurance, therefore, has not been following up with a physician on a regular basis. PFSH Past Medical History Hx Anticoagulant Therapy: No Arthritis: Yes (left elbow) Autoimmune Disease: No Heart Rhythm Problems: No Cancer: No Cardiovascular Problems: Yes (HTN) High Cholesterol: Yes Chest Pain: No Congestive Heart Failure: No Cerebrovascular Accident: No Diabetes: No Diminished Hearing: No Endocrine: No GERD: No Genitourinary: No Hiatal Hernia: No Hypertension: Yes Immune Disorder: No Kidney Stones: No Musculoskeletal: Yes Neurologic: No Psychiatric: No Reproductive: No Respiratory: No Migraines: No Renal Failure: No Seizures: No Sickle Cell Disease: No Sleep Apnea: Yes Thyroid Disease: No Ulcer: No Past Surgical History Abdominal Surgery: No AICD: No Cardiac Surgery: No Ear Surgery: No Endocrine Surgery: No Eye Surgery: No Genitourinary Surgery: No Gynecologic Surgery: No Joint Replacement: No Oral Surgery: No Pacemaker: No Other Surgery: Yes (REMOVAL OF CYST TO LEFT SIDE OF NECK ) Social History Alcohol Use: Yes (socially) Tobacco Use: No (occ) Substance Use: No Allergies-Medications (Allergen,Severity, Reaction): Coded Allergies: *MDRO Multi-Drug Resistant Organism (Verified Adverse Reaction, Unknown, 04/27/17) MRSA (foot)-10/24/16 Reported Meds & Prescriptions Reported Meds & Active Scripts Active Amlodipine (Amlodipine Besylate) 10 Mg Tab 10 Mg PO DAILY Review of Systems Except as stated in HPI: all other systems reviewed are Neg General / Constitutional: No: Fever, Chills Musculoskeletal: Positive: Pain, Other (as noted in the history of present illness) Neurologic: No: Paresthesia, Sensory Disturbance Physical Exam Narrative GENERAL: Awake, alert, pleasant 52-year-old male who appears his stated age and is in no acute respiratory distress. SKIN: Focused skin assessment warm/dry. HEAD: Atraumatic. Normocephalic. MUSCULOSKELETAL: Inspection of the feet bilaterally reveals dry skin on the bottom of the feet bilaterally with scaling and peeling. There is a small fissure on the bottom of the left foot that is diagonal, 1.5 cm in length, slightly open without any bleeding or drainage. He is tender over the affected area, there is no visible foreign body. Positive pulses. NEUROLOGICAL: Awake and alert. No obvious cranial nerve deficits. Motor grossly within normal limits. Normal speech. PSYCHIATRIC: Appropriate mood and affect; insight and judgment normal. Data Data Last Documented VS Vital Signs Date Time Temp Pulse Resp B/P (MAP) Pulse Ox O2 Delivery O2 Flow Rate FiO2 07/01/17 14:36 98.1 80 12 186/84 (118) 98 Orders Orders Wound Care (07/01/17 14:57) MDM Medical Decision Making Medical Screen Exam Complete: Yes Emergency Medical Condition: Yes Medical Record Reviewed: Yes Differential Diagnosis Differential diagnoses includes fissure, abrasion, foreign body, puncture wound , contusion, cellulitis, infected wound. Narrative Course The patient has dry skin with secondary open fissure on the bottom of the left foot. He is advised to keep the area clean and dry, wash twice daily, apply Polysporin. He is also advised to follow-up with podiatry in regards to his chronic dry feet bilaterally which may benefit from hydration therapy. Diagnosis Primary Impression: Fissure in skin of foot Patient Instructions: General Instructions Additional Instructions: Monitor for signs of infection. Keep the area clean and dry. Wash twice daily and apply Polysporin twice daily. Return for fever or progressing symptoms. Med/Other Pt SpecificInfo: No Change to Meds Disposition: 01 DISCHARGE HOME Condition: Stable Magan Allen MD Jul 01, 2017 15:04
== END 2017-07-01 15:56 | disposition home or self-care (01) ==
LOC: NEPD 14:35
DX: R23.4 Changes in skin texture (principal)
CPT/HCPCS: 99282

== ENCOUNTER 2017-07-07 13:34 | Emergency (ER) | payer SELFPAY ==
[~2017-07-07] VITALS: Ht 167.6 cm; Wt 105.0 kg
[2017-07-07 13:36] VITALS: BP 136/88; PULSE 69; RESP 12; TEMP 97.9; O2SAT 97
== END 2017-07-07 14:14 | disposition left against medical advice (07) ==
LOC: NED 13:34
DX: R10.9 Unspecified abdominal pain (principal)
CPT/HCPCS: 99281

== ENCOUNTER 2017-07-07 14:13 | Emergency (ER) | payer SELFPAY ==
[~2017-07-07] VITALS: Ht 167.6 cm; Wt 102.0 kg
[2017-07-07 14:22] VITALS: BP 163/98; PULSE 71; RESP 16; TEMP 97.8; O2SAT 99
--- NOTE | 2017-07-07 14:54 | PD ---
HPI Chief Complaint: GI Complaint Time Seen by Provider: 14:46 Travel History International Travel<30 days: No Contact w/Intl Traveler<30days: No Traveled to known affect area: No History of Present Illness HPI This patient complains of abdominal pain. Location is epigastrium. Duration is 3 hours. Occurred after eating fast food barbecue. He has nausea but no vomiting or diarrhea or fever. Symptoms severity is moderate. No alleviating factors. He is a rare alcohol drinker. No exacerbating factors. PFSH Past Medical History Hx Anticoagulant Therapy: No Arthritis: Yes (left elbow) Autoimmune Disease: No Heart Rhythm Problems: No Cancer: No Cardiovascular Problems: Yes (HTN) High Cholesterol: Yes Chest Pain: No Congestive Heart Failure: No Cerebrovascular Accident: No Diabetes: No Diminished Hearing: No Endocrine: No GERD: No Genitourinary: No Hiatal Hernia: No Hypertension: Yes Immune Disorder: No Kidney Stones: No Musculoskeletal: Yes Neurologic: No Psychiatric: No Reproductive: No Respiratory: No Migraines: No Renal Failure: No Seizures: No Sickle Cell Disease: No Sleep Apnea: Yes Thyroid Disease: No Ulcer: No Past Surgical History Abdominal Surgery: No AICD: No Cardiac Surgery: No Ear Surgery: No Endocrine Surgery: No Eye Surgery: No Genitourinary Surgery: No Gynecologic Surgery: No Joint Replacement: No Oral Surgery: No Pacemaker: No Other Surgery: Yes (REMOVAL OF CYST TO LEFT SIDE OF NECK ) Social History Alcohol Use: Yes (socially) Tobacco Use: No (occ) Substance Use: No Allergies-Medications (Allergen,Severity, Reaction): Coded Allergies: *MDRO Multi-Drug Resistant Organism (Verified Adverse Reaction, Unknown, 04/27/17) MRSA (foot)-10/24/16 Reported Meds & Prescriptions Reported Meds & Active Scripts Active Amlodipine (Amlodipine Besylate) 10 Mg Tab 10 Mg PO DAILY Review of Systems General / Constitutional: No: Fever Eyes: No: Visual changes HENT: No: Headaches Cardiovascular: No: Chest Pain or Discomfort Respiratory: No: Shortness of Breath Gastrointestinal: Positive: Nausea, Abdominal Pain Genitourinary: No: Dysuria Musculoskeletal: No: Pain Skin: No Rash Neurologic: No: Weakness Psychiatric: No: Depression Endocrine: No: Polydipsia Hematologic/Lymphatic: No: Easy Bruising Physical Exam Narrative GENERAL: Well-nourished, well-developed patient in no apparent distress. SKIN: Focused skin assessment reveals no rash and nodules. Skin is Warm and dry. HEAD: Atraumatic. Normocephalic. EYES: Pupils equal and round. No scleral icterus. No injection or drainage. ENT: No nasal bleeding or discharge. Mucous membranes pink and moist. NECK: Trachea midline. No JVD. CARDIOVASCULAR: Regular rate and rhythm. No murmur appreciated. RESPIRATORY: No accessory muscle use. Clear to auscultation. Breath sounds equal bilaterally. GASTROINTESTINAL: Abdomen soft, non-tender, nondistended. Hepatic and splenic margins not palpable. MUSCULOSKELETAL: No obvious deformities. No clubbing. No cyanosis. No edema. NEUROLOGICAL: Awake and alert. No obvious cranial nerve deficits. Motor grossly within normal limits. Normal speech. PSYCHIATRIC: Appropriate mood and affect; insight and judgment normal. Data Data Last Documented VS Vital Signs Date Time Temp Pulse Resp B/P (MAP) Pulse Ox O2 Delivery O2 Flow Rate FiO2 07/07/17 15:20 78 16 151/93 (112) 96 07/07/17 14:22 97.8 Orders Orders Complete Blood Count With Diff (07/07/17 14:51) Comprehensive Metabolic Panel (07/07/17 14:51) Lipase (07/07/17 14:51) Iv Access Insert/Monitor (07/07/17 14:51) Ondansetron Inj (Zofran Inj) (07/07/17 15:00) Sodium Chloride 0.9% Flush (Ns Flush) (07/07/17 15:00) Al-Mag Hy-Si 40-40-4 Mg/Ml Liq (Mag-Al P (07/07/17 15:00) Lidocaine 2% Viscous (Xylocaine 2% Visco (07/07/17 15:00) Labs Laboratory Tests Test 07/07/17 15:05 White Blood Count 4.8 TH/MM3 Red Blood Count 5.01 MIL/MM3 Hemoglobin 14.2 GM/DL Hematocrit 44.9 % Mean Corpuscular Volume 89.5 FL Mean Corpuscular Hemoglobin 28.3 PG Mean Corpuscular Hemoglobin Concent 31.7 % Red Cell Distribution Width 14.2 % Platelet Count 254 TH/MM3 Mean Platelet Volume 7.5 FL Neutrophils (%) (Auto) 60.1 % Lymphocytes (%) (Auto) 30.1 % Monocytes (%) (Auto) 8.7 % Eosinophils (%) (Auto) 0.7 % Basophils (%) (Auto) 0.4 % Neutrophils # (Auto) 3.0 TH/MM3 Lymphocytes # (Auto) 1.4 TH/MM3 Monocytes # (Auto) 0.4 TH/MM3 Eosinophils # (Auto) 0.0 TH/MM3 Basophils # (Auto) 0.0 TH/MM3 CBC Comment DIFF FINAL Differential Comment Blood Urea Nitrogen 15 MG/DL Creatinine 1.20 MG/DL Random Glucose 109 MG/DL Total Protein 7.7 GM/DL Albumin 3.7 GM/DL Calcium Level 8.7 MG/DL Alkaline Phosphatase 93 U/L Aspartate Amino Transf (AST/SGOT) 19 U/L Alanine Aminotransferase (ALT/SGPT) 26 U/L Total Bilirubin 0.3 MG/DL Sodium Level 137 MEQ/L Potassium Level 4.0 MEQ/L Chloride Level 104 MEQ/L Carbon Dioxide Level 27.0 MEQ/L Anion Gap 6 MEQ/L Estimat Glomerular Filtration Rate 78 ML/MIN Lipase 131 U/L MDM Medical Decision Making Medical Screen Exam Complete: Yes Emergency Medical Condition: Yes Medical Record Reviewed: Yes Differential Diagnosis Differential diagnosis includes pancreatitis, biliary colic, hepatitis, GERD, peptic ulcer disease. Narrative Course I have reviewed the patient's electronic medical record. IV placed CBC is normal metabolic profile is normal LFT's are normal lipase is normal I gave him IV Zofran followed by GI cocktail with viscous lidocaine. Patient has a peptic ulcer disease type presentation. Recommended acid blocking medication and follow-up with his physician and avoidance of gastric irritants Diagnosis Primary Impression: Epigastric pain Additional Instructions: The patient was advised to follow up with their physician and return if they worsen. Take Prilosec daily for 2 weeks Med/Other Pt SpecificInfo: Other Disposition: 01 DISCHARGE HOME Condition: Stable Deven Castillo MD Jul 07, 2017 14:54
[2017-07-07] MEDS ORDERED: LIDOCAINE VISCOUS 2% SOLN 15 ML UDC PO ONE (15:00)
[2017-07-07] MEDS ORDERED: ONDANSETRON HCL 4 MG/2 ML VIAL IVP ONE (15:00)
[2017-07-07] MEDS ORDERED: SODIUM CHLORIDE 0.9% FLUSH 10 ML FLUSH IV FLUSH PRN (15:00)
[2017-07-07] MEDS ORDERED: ALUMINUM/MAGNESIUM/SIMETH 30 ML CUP PO ONE (15:00)
[2017-07-07 15:14] LABS: BASOPHIL % 0.4 % (0.0-2.0); EOSINOPHIL % 0.7 % (0.0-4.0); HEMATOCRIT 44.9 % (39.0-51.0); HEMOGLOBIN 14.2 GM/DL (13.0-17.0); LYMPH % 30.1 % (9.0-44.0); LYMPHOCYTE # 1.4 TH/MM3 (1.0-4.8); MEAN CELL VOLUME 89.5 FL (80.0-100.0); MEAN CORPUSCULAR HEMOGLOBIN 28.3 PG (27.0-34.0); MEAN CORPUSCULAR HGB CONC 31.7 % (32.0-36.0); MEAN PLATELET VOLUME 7.5 FL (7.0-11.0); MONO % 8.7 % (0.0-8.0); MONOCYTE # 0.4 TH/MM3 (0-0.9); NEUT % 60.1 % (16.0-70.0); PLATELET COUNT 254 TH/MM3 (150-450); RED BLOOD COUNT 5.01 MIL/MM3 (4.50-5.90); RED CELL DISTRIBUTION WIDTH 14.2 % (11.6-17.2); WHITE BLOOD COUNT 4.8 TH/MM3 (4.0-11.0)
[2017-07-07 15:20] VITALS: BP 151/93; PULSE 78; RESP 16; O2SAT 96
[2017-07-07 15:20] LABS: CHLORIDE 104 MEQ/L (98-107); SODIUM (NA) 137 MEQ/L (136-145)
[2017-07-07 15:23] LABS: CALCIUM 8.7 MG/DL (8.5-10.1)
[2017-07-07 15:24] LABS: ALBUMIN 3.7 GM/DL (3.4-5.0); BLOOD UREA NITROGEN 15 MG/DL (7-18); GLUCOSE,RANDOM 109 MG/DL (74-106); LIPASE 131 U/L (73-393)
[2017-07-07 15:27] LABS: ALT (GPT) 26 U/L (12-78); AST (GOT) 19 U/L (15-37); GLOMERULAR FILTRATION RATE 78 ML/MIN (>89)
[2017-07-07 15:28] LABS: TOTAL BILIRUBIN ADULT 0.3 MG/DL (0.2-1.0); TOTAL PROTEIN 7.7 GM/DL (6.4-8.2)
[2017-07-07 15:29] LABS: ALKALINE PHOSPHATASE 93 U/L (45-117)
== END 2017-07-07 16:25 | disposition home or self-care (01) ==
LOC: PHED 14:13
DX: R10.13 Epigastric pain (principal); R11.0 Nausea; I10 Essential (primary) hypertension; E78.00 Pure hypercholesterolemia, unspecified; M13.822 Other specified arthritis, left elbow; G47.30 Sleep apnea, unspecified; Z79.899 Other long term (current) drug therapy
CPT/HCPCS: 80053; 83690; 85025; 96374; 99284; J2405

== ENCOUNTER 2017-08-22 22:53 | Emergency (ER) | payer OTHER ==
[~2017-08-22] VITALS: Ht 167.6 cm; Wt 103.7 kg
[2017-08-22 22:58] VITALS: BP 150/83; PULSE 83; RESP 18; TEMP 98.7; O2SAT 98
[2017-08-22 23:41] VITALS: BP 150/83; PULSE 83; RESP 18; TEMP 98.7; O2SAT 98
--- NOTE | 2017-08-22 23:54 | PD ---
HPI Chief Complaint: Cold / Flu Symptoms Time Seen by Provider: 23:43 Travel History International Travel<30 days: No Contact w/Intl Traveler<30days: No Traveled to known affect area: No History of Present Illness HPI 52-year-old male presents to the emergency department by private transportation for complaint of 2 days of myalgias arthralgias subjective fever chills sore throat nonproductive cough and feeling poorly. Patient does have history of hypertension but has been taking his medication as prescribed. No chest pain shortness of breath no abdominal pain no flank pain. Patient also states that he has had no vomiting or diarrhea and has continued to have good urine output. PFSH Past Medical History Narrative Medical Arthritis hypertension dyslipidemia; occasional alcohol use Hx Anticoagulant Therapy: No Arthritis: Yes (left elbow) Autoimmune Disease: No Heart Rhythm Problems: No Cancer: No Cardiovascular Problems: Yes (HTN) High Cholesterol: Yes Chest Pain: No Congestive Heart Failure: No Cerebrovascular Accident: No Diabetes: No Diminished Hearing: No Endocrine: No GERD: No Genitourinary: No Hiatal Hernia: No Hypertension: Yes Immune Disorder: No Kidney Stones: No Musculoskeletal: Yes Neurologic: No Psychiatric: No Reproductive: No Respiratory: No Migraines: No Renal Failure: No Seizures: No Sickle Cell Disease: No Sleep Apnea: Yes Thyroid Disease: No Ulcer: No Past Surgical History Abdominal Surgery: No AICD: No Cardiac Surgery: No Ear Surgery: No Endocrine Surgery: No Eye Surgery: No Genitourinary Surgery: No Gynecologic Surgery: No Joint Replacement: No Neurologic Surgery: No Oral Surgery: No Pacemaker: No Other Surgery: Yes (REMOVAL OF CYST TO LEFT SIDE OF NECK ) Social History Alcohol Use: Yes (socially) Tobacco Use: No (DENIES AT THIS TIME) Substance Use: No Allergies-Medications (Allergen,Severity, Reaction): Coded Allergies: *MDRO Multi-Drug Resistant Organism (Verified Adverse Reaction, Unknown, ) 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 Tamiflu (Oseltamivir Phosphate) 75 Mg Cap 75 Mg PO BID 5 Days Amlodipine (Amlodipine Besylate) 10 Mg Tab 10 Mg PO DAILY Review of Systems Except as stated in HPI: all other systems reviewed are Neg General / Constitutional: Positive: Fever HENT: Positive: Congestion Cardiovascular: No: Chest Pain or Discomfort Respiratory: Positive: Cough Gastrointestinal: Positive: Nausea, No: Vomiting, Abdominal Pain Genitourinary: No: Decreased Urinary Output, Flank Pain Musculoskeletal: Positive: Myalgias, Arthralgias Skin: No Rash Neurologic: Positive: Weakness Psychiatric: No: Anxiety Hematologic/Lymphatic: No: Easy Bruising Physical Exam Narrative GENERAL: Well-developed well nourished male no acute distress or respiratory distress SKIN: Warm and dry. HEAD: Normocephalic. EYES: No scleral icterus. No injection or drainage. ENT: Mucous membranes moist oropharynx no redness no induration no edema no erythema; airway is patent NECK: Supple, trachea midline. No JVD or lymphadenopathy. CARDIOVASCULAR: Regular rate and rhythm without murmurs, gallops, or rubs. RESPIRATORY: Breath sounds equal bilaterally. No accessory muscle use. GASTROINTESTINAL: Abdomen soft, non-tender, nondistended. MUSCULOSKELETAL: No cyanosis, or edema. BACK: Nontender without obvious deformity. No CVA tenderness. Data Data Last Documented VS Vital Signs Date Time Temp Pulse Resp B/P (MAP) Pulse Ox O2 Delivery O2 Flow Rate FiO2 08/22/17 23:43 83 18 98 Room Air 08/22/17 23:41 98.7 150/83 (105) Orders Orders Influenzae A/B Antigen (08/22/17 23:43) Oseltamivir (Tamiflu) (08/23/17 01:15) Ed Discharge Order (08/23/17 01:09) [facility] Medical Decision Making Medical Screen Exam Complete: Yes Emergency Medical Condition: Yes Medical Record Reviewed: Yes Interpretation(s) influenza a/b ag: negative Differential Diagnosis Viral syndrome, influenza, sinusitis, bronchitis, pneumonia Narrative Course Influenza A/B antigen specimen collected Patient given tamiflu as presents clinically with flu Influenza A/B antigen is negative; patient clinically appears to have the influenza therefore will provide prescription for Tamiflu and will also cover for bronchitis. Patient is encouraged to continue his antihypertensive medications as prescribed. Diagnosis Primary Impression: Acute viral syndrome Additional Impressions: Hypertension Bronchitis Referrals: Primary Care Physician 2 days Patient Instructions: General Instructions Departure Forms: Tests/Procedures, Work Release Special Instructions: no work x 3 days Additional Instructions: Increase fluid hydration Follow-up with your primary care provider call office in a.m. Take Tylenol/acetaminophen every 4 hours for fever 100.4F or greater Take ibuprofen/Advil/Motrin as tolerated every 6-8 hours as needed for fever 100.4F or greater No work 3 days Complete course of antibiotic as prescribed May use Tamiflu to shorten course and duration of symptoms associated with viral syndrome Use inhaler as prescribed as needed for wheezing or shortness of breath Return to the emergency department for any concerns or change in condition Med/Other Pt SpecificInfo: Prescription(s) given Scripts Albuterol 18 GM Inh (Ventolin Hfa 18 GM Inh) 90 Mcg/Act Aer 2 PUFF INH Q4-6H Y for SHORTNESS OF BREATH, #1 INHALER 0 Refills Prov: Yadira Cummings MD 08/23/17 Azithromycin (Zithromax Z-Terry) 250 Mg Dspk 250 MG PO DIRECTED for Infection, #1 DSPK 0 Refills 500 MG (2 tabs) day 1, then 1 tab days 2-5. Prov: Yadira Cummings MD 08/23/17 Oseltamivir (Tamiflu) 75 Mg Cap 75 MG PO BID for Mgmt Viral Infection for 5 Days, #10 CAP 0 Refills Prov: Yadira Cummings MD 08/23/17 Disposition: 01 DISCHARGE HOME Condition: Stable Yadira Cummings MD Aug 22, 2017 23:54
[2017-08-23] MEDS ORDERED: ZITHTAB PO (01:07)
[2017-08-23] MEDS ORDERED: OSEL75 PO (01:07)
[2017-08-23] MEDS ORDERED: VENTAER INH (01:07)
[2017-08-23] MEDS ORDERED: OSELTAMIVIR PHOSPHATE 75 MG CAP PO ONE (01:15)
[2017-08-23 01:37] VITALS: BP 151/80; PULSE 78; RESP 18; O2SAT 98
== END 2017-08-23 01:39 | disposition home or self-care (01) ==
LOC: PHED 22:53
DX: B34.9 Viral infection, unspecified (principal); I10 Essential (primary) hypertension; J40 Bronchitis, not specified as acute or chronic
CPT/HCPCS: 87804; 99283

== ENCOUNTER 2017-11-08 10:30 | Emergency (ER) | payer OTHER ==
[~2017-11-08 10:30] MED LIST changes: +OSEL75 PO; +VENTAER INH; +ZITHTAB PO
[2017-11-08 10:32] VITALS: BP 140/85; PULSE 76; RESP 20; TEMP 98.1; O2SAT 99
--- NOTE | 2017-11-08 10:41 | PD ---
HPI Chief Complaint: Cold / Flu Symptoms Time Seen by Provider: 10:35 Travel History International Travel<30 days: No Contact w/Intl Traveler<30days: No Traveled to known affect area: No History of Present Illness HPI 52-year-old male presents to the emergency room for evaluation of nonproductive cough, congestion, and body aches that started yesterday and worsened today. Patient states symptoms came on suddenly. He has had no associated fever, chills, nausea, vomiting. He has not taken anything [id number] for his symptoms. Patient has history of hypertension. No chest pain, shortness breath , abdominal pain. PFSH Past Medical History Hx Anticoagulant Therapy: No Arthritis: Yes (left elbow) Autoimmune Disease: No Heart Rhythm Problems: No Cancer: No Cardiovascular Problems: Yes (HTN) High Cholesterol: Yes Chest Pain: No Congestive Heart Failure: No Cerebrovascular Accident: No Diabetes: No Diminished Hearing: No Endocrine: No Gastrointestinal Disorders: No GERD: No Genitourinary: No Headaches: No Hiatal Hernia: No Heparin Induced Thrombocytopen: No Hypertension: Yes Immune Disorder: No Implanted Vascular Access Dvce: No Kidney Stones: No Musculoskeletal: Yes Neurologic: No Psychiatric: No Reproductive: No Respiratory: No Migraines: No Renal Failure: No Seizures: No Sickle Cell Disease: No Sleep Apnea: Yes Thyroid Disease: No Ulcer: No Past Surgical History Abdominal Surgery: No AICD: No Cardiac Surgery: No Ear Surgery: No Endocrine Surgery: No Eye Surgery: No Genitourinary Surgery: No Gynecologic Surgery: No Joint Replacement: No Neurologic Surgery: No Oral Surgery: No Pacemaker: No Other Surgery: Yes (REMOVAL OF CYST TO LEFT SIDE OF NECK ) Social History Alcohol Use: Yes (socially) Tobacco Use: No (DENIES AT THIS TIME) Substance Use: No Allergies-Medications (Allergen,Severity, Reaction): Coded Allergies: *MDRO Multi-Drug Resistant Organism (Verified Adverse Reaction, Unknown, ) 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 Afebrile. Ambulatory. SKIN: Focused skin assessment warm/dry. HEAD: Normocephalic. EYES: No scleral icterus. No injection or drainage. NECK: Supple, trachea midline. No JVD or lymphadenopathy. ENT: Mucosa pink and moist. No erythema or exudates. No uvular edema. No uvular , palatal, or tonsillar deviation. Airway patent. Nasal turbinates appear normal without nasal blood, purulent drainage or septal hematoma. CARDIOVASCULAR: Regular rate and rhythm without murmurs, gallops, or rubs. RESPIRATORY: Breath sounds equal bilaterally. No accessory muscle use. No crackles, rales, wheezes, rhonchi. Data Data Last Documented VS Vital Signs Date Time Temp Pulse Resp B/P (MAP) Pulse Ox O2 Delivery O2 Flow Rate FiO2 11/08/17 10:32 98.1 76 20 140/85 (103) 99 Orders Orders Influenzae A/B Antigen (11/08/17 10:39) MDM Medical Decision Making Medical Screen Exam Complete: Yes Emergency Medical Condition: Yes Medical Record Reviewed: Yes Differential Diagnosis Viral syndrome, influenza, upper respiratory infection, sinusitis Narrative Course 52-year-old who presents to the emergency room for cold symptoms that started yesterday. Physical exam is unremarkable. Patient has mild nasal congestion. Lung sounds clear and equal bilaterally. Coughing infrequently in the ED. Vital signs stable. This is viral upper respiratory infection. Influenza is negative. Patient told to continue [id number] medications and follow-up with a primary care physician or return for worsening symptoms. He understands and agrees to plan. Diagnosis Primary Impression: Viral URI Referrals: Primary Care Physician Additional Instructions: This is a viral upper respiratory infection. It has to run its course. Antibiotics will not help. Continue [id number] cough and cold medications as directed, as needed for symptoms. Follow-up with a primary care physician. Return to the emergency room for worsening symptoms. Disposition: 01 DISCHARGE HOME Condition: Stable Vibha Nieves Nov 08, 2017 10:41
== END 2017-11-08 11:26 | disposition home or self-care (01) ==
LOC: NEPK 10:30
DX: J06.9 Acute upper respiratory infection, unspecified (principal); I10 Essential (primary) hypertension; R09.81 Nasal congestion
CPT/HCPCS: 87804; 99283